=== PATIENT | female | born 1985 | race African-American/Black ===

== ENCOUNTER 2018-09-01 19:43 | Emergency (ER) | payer SELFPAY ==
[2018-09-01 20:59] LABS: Urine Blood TRACE (NEG); Urine Glucose NEGATIVE (NEG); Urine Protein NEGATIVE (NEG); Urine Specific Gravity 1.025 (1.005-1.030)
[2018-09-01 21:12] LABS: Urine Bacteria 20-50 /HPF (<20); Urine Culture Reflex Order NOT NEEDED; Urine RBC <5 /HPF (NONE SEEN)
--- NOTE | 2018-09-01 21:22 | ER ---
Nurse's Notes [facility] Name: Pricila Hanson Age: 33 yrs Sex: Female : 1985 Arrival Date: 09/01/2018 Time: 19:47 Bed 4 Private MD: Diagnosis: Pain in right foot;Urinary tract infection, site not specified Presentation: 09/01 20:09 Presenting complaint: Patient states: Burning after urination for 3 days and right foot aj pain with swelling 3 days ago, improved. Transition of care: patient was not received from another setting of care. Onset of symptoms was August 29, 2018. Risk Assessment: Do you want to hurt yourself or someone else? Patient reports no desire to harm self or others. Initial Sepsis Screen: Does the patient meet any 2 criteria? No. Patient's initial sepsis screen is negative. Does the patient have a suspected source of infection? No. Patient's initial sepsis screen is negative. Care prior to arrival: None. 20:09 Method Of Arrival: Ambulatory aj 20:09 Acuity: CECIL 3 aj Triage Assessment: 20:11 General: Appears in no apparent distress. comfortable, Behavior is calm, cooperative, aj appropriate for age. Pain: Denies pain. Neuro: Level of Consciousness is awake, alert, obeys commands, Oriented to person, place, time, situation, Appropriate for age. Respiratory: Airway is patent Respiratory effort is even, unlabored, Respiratory pattern is regular, symmetrical. Derm: Skin is intact, is healthy with good turgor, Skin is pink, warm \T\ dry. normal. 20:59 EENT: No signs and/or symptoms were reported regarding the EENT system. Cardiovascular: ak1 No deficits noted. GI: No signs and/or symptoms were reported involving the gastrointestinal system. : No signs and/or symptoms were reported regarding the genitourinary system. Musculoskeletal: Reports pain to foot. 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 - Social history:: Smoking status: Patient/guardian denies using tobacco. - Ebola Screening: : Patient negative for fever greater than or equal to 101.5 degrees Fahrenheit, and additional compatible Ebola Virus Disease symptoms Patient denies exposure to infectious person Patient denies travel to an Ebola-affected area in the 21 days before illness onset No symptoms or risks identified at this time. Screenin:36 Abuse screen: Denies threats or abuse. Denies injuries from another. Nutritional ak1 screening: No deficits noted. Tuberculosis screening: No symptoms or risk factors identified. Fall Risk None identified. Assessment: 20:59 Reassessment: Patient appears in no apparent distress at this time. No changes from ak1 previously documented assessment. see triage assessment. Vital Signs: 20:11 BP 128 / 72; Pulse 86; Resp 19; Temp 97.6; Pulse Ox 99% on R/A; Weight 122.47 kg; aj Height 5 ft. 8 in. (172.72 cm); 21:29 BP 126 / 80; Pulse 92; Resp 19; Pulse Ox 100% on R/A; ak1 20:11 Body Mass Index 41.05 (122.47 kg, 172.72 cm) aj ED Course: 19:47 Patient arrived in ED. ag3 20:10 Triage completed. aj 20:11 Arm band placed on right wrist. Patient placed in an exam room. aj 20:36 Nanette Lim, RN is Primary Nurse. ak1 20:36 Patient has correct armband on for positive identification. Bed in low position. Call ak1 light in reach. Side rails up X 1. Pulse ox on. NIBP on. 20:40 Eagle Pantoja PA is PHCP. cp 20:40 Gerardo Avila MD is Attending Physician. cp 21:14 X-ray completed. Portable x-ray completed in exam room. Patient tolerated procedure az well. 21:15 XRAY Foot RIGHT 3 View In Process Unspecified. EDMS 21:28 No provider procedures requiring assistance completed. Patient did not have IV access ak1 during this emergency room visit. Administered Medications: No medications were administered Outcome: 21:21 Discharge ordered by . cp 21:28 Discharged to home ambulatory. ak1 21:28 Condition: good 21:28 Discharge instructions given to patient, Instructed on discharge instructions, follow up and referral plans. no drinking with medication, no driving heavy equipment, medication usage, safety practices, control, Demonstrated understanding of instructions, follow-up care, medications, Prescriptions given X 3. 21:32 Patient left the ED. ak1 Addendum: 09/04/2018 10:25 Addendum: Culture Results: Positive urine culture. Phone call Attempt #1 hang up. h b 13:32 Addendum: Culture Results: Positive urine culture. Phone call Attempt #2 no answer. h b 09/05/2018 12:44 Addendum: Culture Results: Positive urine culture. Phone call Attempt #3 no answer. h b Signatures: Dispatcher [employer] EDAshley Cotton RN RN Nanette Rock RN RN ak1 Eagle Pantoja PA PA cp Baxter, Heather, RN RN Niurka Vargas Alice ag3
--- NOTE | 2018-09-01 21:22 | EDPHYS ---
Physician Documentation [facility] Name: Pricila Hanson Age: 33 yrs Sex: Female : 1985 Arrival Date: 09/01/2018 Time: 19:47 Bed 4 Private MD: ED Physician Gerardo Avila HPI: 09/01 20:50 This 33 yrs old Black Female presents to ER via Ambulatory with complaints of Urinary cp Problem. 20:50 The patient presents with urinary symptoms, dysuria. cp 20:50 Onset: The symptoms/episode began/occurred 3 day(s) ago. Associated signs and symptoms: cp Pertinent negatives: fever, vaginal bleeding, vaginal discharge, back pain. The patient presents with pain, that is acute, swelling, tenderness. The complaints affect the right foot. Context: resulted from an unknown cause, the patient can fully bear weight, the patient is able to ambulate, with mild difficulty. 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 - Social history:: Smoking status: Patient/guardian denies using tobacco. - Ebola Screening: : Patient negative for fever greater than or equal to 101.5 degrees Fahrenheit, and additional compatible Ebola Virus Disease symptoms Patient denies exposure to infectious person Patient denies travel to an Ebola-affected area in the 21 days before illness onset No symptoms or risks identified at this time. ROS: 21:00 Constitutional: Negative for body aches, chills, fever, poor PO intake. cp 21:00 Eyes: Negative for injury, pain, redness, and discharge. cp 21:00 ENT: Negative for drainage from ear(s), ear pain, sore throat, difficulty swallowing, difficulty handling secretions. 21:00 Cardiovascular: Negative for chest pain, edema, palpitations. 21:00 Respiratory: Negative for cough, shortness of breath, wheezing. 21:00 Abdomen/GI: Negative for abdominal pain, nausea, vomiting, and diarrhea. 21:00 Back: Negative for pain at rest, pain with movement. 21:00 : Positive for burning with urination, Negative for vaginal bleeding, vaginal discharge. 21:00 MS/extremity: Positive for pain, swelling, tenderness, of the right foot. 21:00 All other systems are negative. Exam: 21:05 Constitutional: The patient appears in no acute distress, alert, awake, non-toxic, well cp developed, well nourished. 21:05 Head/Face: Normocephalic, atraumatic. cp 21:05 Eyes: Periorbital structures: appear normal, Conjunctiva: normal, no exudate, no injection, Sclera: no appreciated abnormality, Lids and lashes: appear normal, bilaterally. 21:05 ENT: External ear(s): are unremarkable, Nose: is normal, Mouth: Lips: moist, Oral mucosa: moist, Posterior pharynx: is normal, airway is patent. 21:05 Chest/axilla: Inspection: normal. 21:05 Cardiovascular: Rate: normal. 21:05 Respiratory: the patient does not display signs of respiratory distress, Respirations: normal, no use of accessory muscles, no retractions, no splinting, no tachypnea. 21:05 Abdomen/GI: Exam negative for discomfort, distension, guarding, Inspection: abdomen appears normal. 21:05 Back: pain, is absent, ROM is normal. 21:05 Musculoskeletal/extremity: Extremities: grossly normal except: noted in the lateral aspect right foot: pain, tenderness, There is no evidence of deformity. 21:05 Skin: cellulitis, is not appreciated, no rash present. Vital Signs: 20:11 BP 128 / 72; Pulse 86; Resp 19; Temp 97.6; Pulse Ox 99% on R/A; Weight 122.47 kg; aj Height 5 ft. 8 in. (172.72 cm); 21:29 BP 126 / 80; Pulse 92; Resp 19; Pulse Ox 100% on R/A; ak1 20:11 Body Mass Index 41.05 (122.47 kg, 172.72 cm) aj MDM: 20:40 Patient medically screened. cp 21:00 Differential diagnosis: fracture, pyelonephritis urinary tract infection, vaginosis. cp 21:20 Data reviewed: vital signs, nurses notes, lab test result(s), radiologic studies, plain cp films. 21:20 Test interpretation: by ED physician or midlevel provider: plain radiologic studies. cp Counseling: I had a detailed discussion with the patient and/or guardian regarding: the historical points, exam findings, and any diagnostic results supporting the discharge/admit diagnosis, lab results, radiology results, to return to the emergency department if symptoms worsen or persist or if there are any questions or concerns that arise at home. 09/01 20:42 Order name: Urine Culture ak1 09/01 20:42 Order name: Urine Microscopic Only; Complete Time: 21:20 ak1 09/01 20:42 Order name: Urine Dipstick-Ancillary (obtain specimen); Complete Time: 20:43 ak1 09/01 20:45 Order name: XRAY Foot RIGHT 3 View cp 09/01 20:51 Order name: Urine Dipstick--Ancillary (enter results); Complete Time: 21:20 ms 09/01 20:51 Order name: Urine --Ancillary (enter results); Complete Time: 21:20 ms 09/01 20:42 Order name: Urine Test (obtain specimen); Complete Time: 20:42 ak1 Administered Medications: No medications were administered Disposition: 09/01/18 21:21 Discharged to Home. Impression: Pain in right foot, Urinary tract infection, site not specified. - Condition is Stable. - Discharge Instructions: Urinary Tract Infection, Adult, Foot Pain. - Prescriptions for Anaprox DS 550 mg Oral Tablet - take 1 tablet by ORAL route every 12 hours As needed; 20 tablet. Pyridium 200 mg Oral Tablet - take 1 tablet by ORAL route every 8 hours for 2 days; 6 tablet. Bactrim DS 800- 160 mg Oral Tablet - take 1 tablet by ORAL route every 12 hours for 7 days; 14 tablet. - Medication Reconciliation Form, Thank You Letter, Antibiotic Education, Prescription Opioid Use form. - Follow up: Private Physician; When: 1 week; Reason: Recheck today's complaints. - Problem is new. - Symptoms have improved. Addendum: 09/04/2018 13:40 Co-signature as Attending Physician, Gerardo Avila MD I agree with the assessment and k dr plan of care. Signatures: Dispatcher [employer] EDMS Ashley Petersen RN RN aj Rittger, Kevin, MD MD kdr Nanette Lim RN RN ak1 Eagle Pantoja PA PA cp Corrections: (The following items were deleted from the chart) 09/01 21:32 21:21 09/01/2018 21:21 Discharged to Home. Impression: Pain in right foot; Urinary ak1 tract infection, site not specified. Condition is Stable. Forms are Medication Reconciliation Form, Thank You Letter, Antibiotic Education, Prescription Opioid Use. Follow up: Private Physician; When: 1 week; Reason: Recheck today's complaints. Problem is new. Symptoms have improved. cp 09/02 15:23 15:21 Constitutional: The patient appears in no acute distress, alert, cp cp
--- NOTE | 2018-09-01 21:27 | RAD REPORT ---
EXAM DESCRIPTION: RAD - Foot Right 3 View - 09/01/2018 9:17 pm CLINICAL HISTORY: PAIN COMPARISON: No comparisons FINDINGS: No fracture or dislocation seen. Tiny calcaneal spurs are noted.
== END 2018-09-01 21:32 | disposition home or self-care (01) ==
LOC: ER 19:43
DX: N39.0 Urinary tract infection, site not specified (principal); M79.671 Pain in right foot; Z88.8 Allergy status to other drugs, medicaments and biological substances
CPT/HCPCS: 81003; 81015; 81025; 87077; 87086; 87088; 87186; 99283

== ENCOUNTER 2019-09-14 23:49 | Emergency (ER) | payer OTHER, SELFPAY ==
[2019-09-15] MEDS ORDERED: NA CHLORIDE 0.9% 1,000 ML ONE ×2 (00:53→03:12)
[2019-09-15] MEDS ORDERED: ONDANSETRON 4 MG/2 ML VIAL ONE (00:53)
[2019-09-15] MEDS ORDERED: FAMOTIDINE 20 MG/2 ML VIAL IV ONE (00:53)
[2019-09-15 01:18] LABS: Absolute Lymphocytes (CBC) 0.6 K/uL (0.7-4.9); Basophils % 0.5 % (0-1.3); Hematocrit 29.7 % (36.0-45.0); MPV 8.4 fL (7.6-11.3); RBC Red Blood Cell Count 4.12 M/uL (3.86-4.86)
[2019-09-15 01:33] LABS: Albumin 3.3 g/dL (3.4-5.0); Bilirubin Direct 0.1 mg/dL (0-0.2); Bilirubin Total 0.3 mg/dL (0.2-1.0); Potassium 3.6 mmol/L (3.5-5.1); Protein, Total 7.2 g/dL (6.4-8.2)
[2019-09-15] MEDS ORDERED: CEFTRIAXONE/SWI 1gm 1 GM/10 ML SYR ONE (02:30)
[2019-09-15] MEDS ORDERED: KETOROLAC 30 MG/ML INJ ONE (02:37)
[2019-09-15 03:01] LABS: Urine Blood NEGATIVE (NEG); Urine Glucose NEGATIVE (NEG)
[2019-09-15 03:02] LABS: Urine Protein NEGATIVE (NEG); Urine pH 5.5 (5.0-7.0)
--- NOTE | 2019-09-15 03:46 | EDPHYS ---
Physician Documentation [facility] Name: Pricila Hanson Age: 34 yrs Sex: Female : 1985 Arrival Date: 09/14/2019 Time: 23:58 Bed 15 Private MD: ED Physician Eagle Ragland HPI: 09/15 00:25 This 34 yrs old Black Female presents to ER via Ambulatory with complaints of Abdominal cp Pain. 00:25 The patient presents with abdominal pain. cp 00:25 Onset: The symptoms/episode began/occurred last night. The symptoms do not radiate. cp Associated signs and symptoms: Pertinent negatives: anorexia, blood in stools, constipation, diarrhea, dysuria, fever, shortness of breath. Severity of pain: in the emergency department the pain is unchanged despite home interventions. 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 - Social history:: Smoking status: Patient/guardian denies using tobacco. - Ebola Screening: : Patient denies exposure to infectious person Patient denies travel to an Ebola-affected area in the 21 days before illness onset. ROS: 00:30 Constitutional: Negative for body aches, chills, fever, poor PO intake. cp 00:30 Eyes: Negative for injury, pain, redness, and discharge. cp 00:30 ENT: Positive for ear pain, Negative for drainage from ear(s), sore throat, difficulty swallowing, difficulty handling secretions. 00:30 Cardiovascular: Negative for chest pain, palpitations. 00:30 Respiratory: Negative for cough, shortness of breath, wheezing. 00:30 Abdomen/GI: Positive for abdominal pain, Negative for vomiting, diarrhea, constipation, anorexia, black/tarry stool, rectal bleeding. 00:30 Back: Negative for injury or acute deformity, pain at rest, pain with movement. 00:30 : Negative for urinary symptoms. 00:30 Skin: Negative for rash. 00:30 Neuro: Negative for altered mental status, dizziness, weakness. 00:30 All other systems are negative. Exam: 00:40 Constitutional: The patient appears in no acute distress, alert, awake, non-toxic, well cp developed, well nourished. 00:40 Head/Face: Normocephalic, atraumatic. cp 00:40 Eyes: Periorbital structures: appear normal, Conjunctiva: normal, no exudate, no injection, Sclera: no appreciated abnormality, Lids and lashes: appear normal, bilaterally. 00:40 ENT: External ear(s): are unremarkable, Ear canal(s): are normal, clear, TM's: bulging, is not appreciated, bilaterally, dullness, bilaterally, erythema, is not appreciated, bilaterally, Nose: is normal, Mouth: Lips: moist, Oral mucosa: pink and intact, moist, Posterior pharynx: is normal, airway is patent, no erythema, no exudate. 00:40 Neck: ROM/movement: is normal, is supple, without pain, no range of motions limitations, no nuchal rigidity, Lymph nodes: no appreciated lymphadenopathy. 00:40 Chest/axilla: Inspection: normal, Palpation: is normal, no crepitus, no tenderness. 00:40 Cardiovascular: Rate: normal, Rhythm: regular. 00:40 Respiratory: the patient does not display signs of respiratory distress, Respirations: normal, no use of accessory muscles, no retractions, no splinting, no tachypnea, labored breathing, is not present, Breath sounds: are clear throughout, no decreased breath sounds, no stridor, no wheezing. 00:40 Abdomen/GI: Inspection: abdomen appears normal, Bowel sounds: active, all quadrants, Palpation: soft, in all quadrants, mild abdominal tenderness, in the right upper quadrant, rebound tenderness, is not appreciated, voluntary guarding, is not appreciated. 00:40 Back: CVA tenderness, is absent. Vital Signs: 00:08 BP 99 / 61; Pulse 80; Resp 18; Temp 97.5; Pulse Ox 100% ; Weight 99.79 kg; Height 5 ft. aa1 8 in. (172.72 cm); Pain 8/10; 01:00 BP 103 / 65; Pulse 76; Resp 18; Pulse Ox 100% on R/A; wh 02:00 BP 99 / 66; Pulse 75; Resp 18; Pulse Ox 99% on R/A; wh 03:00 BP 110 / 65; Pulse 75; Resp 18; Temp 98; Pulse Ox 99% on R/A; Pain 0/10; jv1 03:48 BP 109 / 67; Pulse 73; Resp 18; Temp 98; Pulse Ox 100% on R/A; Pain 0/10; jv1 04:15 BP 110 / 65; Pulse 73; Resp 18; Temp 98; Pulse Ox 100% ; Pain 0/10; jv1 00:08 Body Mass Index 33.45 (99.79 kg, 172.72 cm) aa1 MDM: 00:06 Patient medically screened. hailee 09/15 00:19 Order name: Basic Metabolic Panel; Complete Time: 01:36 cp 09/15 02:36 Interpretation: Normal except: GLUC 108; GFR 67; CA 8.1. cp 09/15 00:19 Order name: CBC with Diff; Complete Time: 01:36 cp 09/15 00:19 Order name: Creatinine for Radiology; Complete Time: 01:36 cp 09/15 00:19 Order name: Hepatic Function; Complete Time: 01:36 cp 09/15 00:19 Order name: Lipase; Complete Time: 01:36 cp 09/15 02:28 Order name: Urine Dipstick--Ancillary (enter results); Complete Time: 03:43 [facility] 09/15 00:40 Order name: CT Abd/Pelvis - IV Contrast Only cp 09/15 02:28 Order name: Urine --Ancillary (enter results); Complete Time: 03:43 [facility] 09/15 00:19 Order name: IV Saline Lock; Complete Time: 00:47 cp 09/15 00:19 Order name: Labs collected and sent; Complete Time: 00:47 cp 09/15 00:19 Order name: Urine Dipstick-Ancillary (obtain specimen); Complete Time: 02:21 cp 09/15 00:19 Order name: Urine Test (obtain specimen); Complete Time: 02:21 cp Administered Medications: 00:58 Drug: Zofran 4 mg Route: IVP; Site: right antecubital; 02:15 Follow up: Response: No adverse reaction; Nausea is decreased 01:00 Drug: Pepcid 20 mg Route: IVP; Site: right antecubital; 02:15 Follow up: Response: No adverse reaction 01:02 Drug: NS 0.9% 1000 ml Route: IV; Rate: 1 bolus; Site: right antecubital; 02:14 Follow up: Response: No adverse reaction; IV Status: Completed infusion 02:35 Drug: Rocephin 1 grams Route: IV; Rate: bolus; Site: right antecubital; 03:30 Follow up: Response: No adverse reaction; IV Status: Completed infusion jv1 03:35 Follow up: Response: No adverse reaction; IV Status: Completed infusion rr5 02:42 Drug: TORadol 30 mg Route: IVP; Site: right antecubital; wh 03:45 Follow up: Response: No adverse reaction rr5 03:15 Drug: NS 0.9% 1000 ml Route: IV; Rate: 1 bolus; Site: right antecubital; rr5 03:50 Follow up: Response: No adverse reaction; IV Status: Completed infusion jv1 03:56 Drug: Flagyl 500 mg Volume: 100 ml; Route: IVPB; Rate: 200 ml/hr; Infused Over: 30 rr5 mins; Site: right antecubital; 04:15 Follow up: Response: No adverse reaction; IV Status: Completed infusion jv1 03:57 Drug: Cipro 500 mg Route: PO; rr5 04:15 Follow up: Response: No adverse reaction jv1 Disposition: 09/15/19 03:46 Discharged to Home. Impression: Abdominal tenderness, Noninfective gastroenteritis and colitis, unspecified - right sided, Anemia, unspecified. - Condition is Stable. - Discharge Instructions: Abdominal Pain, Adult, Anemia, Nonspecific, Food Choices to Help Relieve Diarrhea, Adult, Nausea and Vomiting, Adult, Abdominal Pain, Adult, [id number]. - Prescriptions for Bentyl 20 mg Oral Tablet - take 1 tablet by ORAL route every 6 hours As needed; 20 tablet. Flagyl 500 mg Oral Tablet - take 1 tablet by ORAL route every 6 hours for 10 days; 28 tablet. Zofran 4 mg Oral Tablet - take 1 tablet by ORAL route every 12 hours As needed; 20 tablet. Cipro 500 mg Oral Tablet - take 1 tablet by ORAL route every 12 hours for 7 days; 14 tablet. - Medication Reconciliation Form, Thank You Letter, Antibiotic Education, Prescription Opioid Use form. - Follow up: Private Physician; When: 2 - 3 days; Reason: Recheck today's complaints, Continuance of care, Re-evaluation by your physician. Follow up: Nubia Lane MD; When: 2 - 3 days; Reason: Recheck today's complaints, Re-evaluation by your physician. - Problem is new. - Symptoms have improved. Addendum: 09/17/2019 08:38 Co-signature as Attending Physician, Eagle Ragland MD I agree with the assessment and c sr plan of care. Signatures: Dispatcher [employer] EDShelly Xiong RN RN aa1 Eagle Ragland MD MD cha Page, Corey, PA PA cp Tarik Osuna Raymond RN RN rr5 Susan Grover RN jv1 Corrections: (The following items were deleted from the chart) 09/15 02:36 01:37 Normal except: GLUC 108; GFR 67. cp cp 02:52 00:25 The patient presents with abdominal pain in the right upper quadrant, cp cp 04:49 03:46 09/15/2019 03:46 Discharged to Home. Impression: Abdominal tenderness; rr5 Noninfective gastroenteritis and colitis, unspecified - right sided; Anemia, unspecified. Condition is Stable. Forms are Medication Reconciliation Form, Thank You Letter, Antibiotic Education, Prescription Opioid Use. Follow up: Private Physician; When: 2 - 3 days; Reason: Recheck today's complaints, Continuance of care, Re-evaluation by your physician. Follow up: Nubia Lane; When: 2 - 3 days; Reason: Recheck today's complaints, Re-evaluation by your physician. Problem is new. Symptoms have improved. hailee
--- NOTE | 2019-09-15 03:46 | ER ---
Nurse's Notes [facility] Name: Pricila Hanson Age: 34 yrs Sex: Female : 1985 Arrival Date: 09/14/2019 Time: 23:58 Bed 15 Private MD: Diagnosis: Abdominal tenderness;Noninfective gastroenteritis and colitis, unspecified-right sided;Anemia, unspecified Presentation: 09/15 00:05 Presenting complaint: Patient states: lower abd pain since last night with N/D. Denies aa1 vomiting. Transition of care: patient was not received from another setting of care. Onset of symptoms was September 13, 2019. Risk Assessment: Do you want to hurt yourself or someone else? Patient reports no desire to harm self or others. Initial Sepsis Screen: Does the patient meet any 2 criteria? No. Patient's initial sepsis screen is negative. Does the patient have a suspected source of infection? Yes: Acute abdominal pain. Care prior to arrival: None. 00:05 Method Of Arrival: Ambulatory aa1 00:05 Acuity: CECIL 3 aa1 Triage Assessment: 00:08 General: Appears in no apparent distress. comfortable, Behavior is calm, cooperative, aa1 appropriate for age. 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 - Social history:: Smoking status: Patient/guardian denies using tobacco. - Ebola Screening: : Patient denies exposure to infectious person Patient denies travel to an Ebola-affected area in the 21 days before illness onset. Screenin:30 Abuse screen: Denies threats or abuse. Denies injuries from another. Nutritional wh screening: No deficits noted. Tuberculosis screening: No symptoms or risk factors identified. Fall Risk None identified. Assessment: 00:15 General: Appears in no apparent distress. Behavior is calm, cooperative, appropriate wh for age. Pain: Complains of pain in right upper quadrant Pain does not radiate. Pain currently is 5 out of 10 on a pain scale. Quality of pain is described as sharp, Pain began 1 day ago. Neuro: Level of Consciousness is awake, alert, obeys commands, Oriented to person, place, time, situation, Appropriate for age. Cardiovascular: Heart tones S1 S2. Respiratory: Airway is patent Respiratory effort is even, unlabored, Respiratory pattern is regular, symmetrical, Breath sounds are clear bilaterally. GI: Abdomen is flat, non-distended, Bowel sounds present X 4 quads. Abd is soft and non tender X 4 quads. GI: Reports diarrhea, nausea. : No signs and/or symptoms were reported regarding the genitourinary system. EENT: No signs and/or symptoms were reported regarding the EENT system. Derm: Skin is intact, is healthy with good turgor, Skin is pink, warm \T\ dry. normal. Musculoskeletal: Circulation, motion, and sensation intact. 01:05 Reassessment: Patient appears in no apparent distress at this time. No changes from previously documented assessment. Patient and/or family updated on plan of care and expected duration. Pain level reassessed. Patient is alert, oriented x 3, equal unlabored respirations, skin warm/dry/pink. 02:09 Reassessment: Patient appears in no apparent distress at this time. No changes from previously documented assessment. Patient and/or family updated on plan of care and expected duration. Pain level reassessed. Patient is alert, oriented x 3, equal unlabored respirations, skin warm/dry/pink. 03:00 Reassessment: Patient appears in no apparent distress at this time. No changes from jv1 previously documented assessment. Patient and/or family updated on plan of care and expected duration. Pain level reassessed. Patient is alert, oriented x 3, equal unlabored respirations, skin warm/dry/pink. received report for transfer of pt care from Tarik Osuna RN. General: Appears in no apparent distress. Behavior is calm, cooperative, appropriate for age. Pain: Denies pain. Neuro: Neuro: Level of Consciousness is Oriented to person, place, time, situation, Appropriate for age. Cardiovascular: Heart tones S1 S2. Respiratory: Airway is patent Breath sounds are clear bilaterally. GI: Abdomen is round non-distended. : No signs and/or symptoms were reported regarding the genitourinary system. EENT: No signs and/or symptoms were reported regarding the EENT system. Derm: Musculoskeletal: Circulation, motion, and sensation intact. 03:00 Reassessment: pt just came back from CT scan. jv1 03:47 Reassessment: Patient appears in no apparent distress at this time. No changes from jv1 previously documented assessment. Patient and/or family updated on plan of care and expected duration. Pain level reassessed. Patient is alert, oriented x 3, equal unlabored respirations, skin warm/dry/pink. Patient denies pain at this time. 04:15 Reassessment: Patient appears in no apparent distress at this time. No changes from jv1 previously documented assessment. Patient and/or family updated on plan of care and expected duration. Pain level reassessed. Patient is alert, oriented x 3, equal unlabored respirations, skin warm/dry/pink. Patient denies pain at this time. Vital Signs: 00:08 BP 99 / 61; Pulse 80; Resp 18; Temp 97.5; Pulse Ox 100% ; Weight 99.79 kg; Height 5 ft. aa1 8 in. (172.72 cm); Pain 8/10; 01:00 BP 103 / 65; Pulse 76; Resp 18; Pulse Ox 100% on R/A; wh 02:00 BP 99 / 66; Pulse 75; Resp 18; Pulse Ox 99% on R/A; wh 03:00 BP 110 / 65; Pulse 75; Resp 18; Temp 98; Pulse Ox 99% on R/A; Pain 0/10; jv1 03:48 BP 109 / 67; Pulse 73; Resp 18; Temp 98; Pulse Ox 100% on R/A; Pain 0/10; jv1 04:15 BP 110 / 65; Pulse 73; Resp 18; Temp 98; Pulse Ox 100% ; Pain 0/10; jv1 00:08 Body Mass Index 33.45 (99.79 kg, 172.72 cm) aa1 ED Course: 09/14 23:58 Patient arrived in ED. mr 09/15 00:06 Eagle Pantoja PA is PHCP. cp 00:06 Eagle Ragland MD is Attending Physician. cp 00:07 Triage completed. aa1 00:08 Arm band placed on right wrist. aa1 00:27 Tarik Osuna is Primary Nurse. wh 00:30 Patient has correct armband on for positive identification. Placed in gown. Bed in low wh position. Call light in reach. Side rails up X 1. Pulse ox on. NIBP on. 00:30 Inserted saline lock: 22 gauge in right antecubital area, using aseptic technique. Blood collected. 01:10 Radiology exam delayed due to lab results not completed at this time. (BUN/Creatinine) kw1 test not completed at this time. 01:47 Radiology exam delayed due to test not completed at this time. kw1 03:21 CT Abd/Pelvis - IV Contrast Only In Process Unspecified. EDMS 03:[address] MD is Referral Physician. [facility] 04:20 No provider procedures requiring assistance completed. IV discontinued, intact, jv1 bleeding controlled, No redness/swelling at site. Pressure dressing applied. Administered Medications: 00:58 Drug: Zofran 4 mg Route: IVP; Site: right antecubital; 02:15 Follow up: Response: No adverse reaction; Nausea is decreased 01:00 Drug: Pepcid 20 mg Route: IVP; Site: right antecubital; 02:15 Follow up: Response: No adverse reaction 01:02 Drug: NS 0.9% 1000 ml Route: IV; Rate: 1 bolus; Site: right antecubital; 02:14 Follow up: Response: No adverse reaction; IV Status: Completed infusion 02:35 Drug: Rocephin 1 grams Route: IV; Rate: bolus; Site: right antecubital; 03:30 Follow up: Response: No adverse reaction; IV Status: Completed infusion jv1 03:35 Follow up: Response: No adverse reaction; IV Status: Completed infusion rr5 02:42 Drug: TORadol 30 mg Route: IVP; Site: right antecubital; 03:45 Follow up: Response: No adverse reaction rr5 03:15 Drug: NS 0.9% 1000 ml Route: IV; Rate: 1 bolus; Site: right antecubital; rr5 03:50 Follow up: Response: No adverse reaction; IV Status: Completed infusion jv1 03:56 Drug: Flagyl 500 mg Volume: 100 ml; Route: IVPB; Rate: 200 ml/hr; Infused Over: 30 rr5 mins; Site: right antecubital; 04:15 Follow up: Response: No adverse reaction; IV Status: Completed infusion jv1 03:57 Drug: Cipro 500 mg Route: PO; rr5 04:15 Follow up: Response: No adverse reaction jv1 Outcome: 03:46 Discharge ordered by MD. stephen 04:20 Discharged to home ambulatory. jv1 04:20 Condition: improved 04:20 Discharge instructions given to Instructed on discharge instructions, follow up and referral plans. Demonstrated understanding of instructions, follow-up care, medications, Prescriptions given X 1, 4. 04:49 Patient left the ED. rr5 Signatures: Dispatcher [employer] EDMS Shelly Burton, RN RN aa1 Eagle Ragland MD MD cha Rivera, Eagle Mcgill, PA PA Tarik Mckeon Cynthia Leonard kw1 Susan Grover RN RN jv1 Moose Rogers RN RN rr5 Corrections: (The following items were deleted from the chart) 04:50 03:35 Response: No adverse reaction; IV Status: Completed infusion rr5 rr5
[2019-09-15] MEDS ORDERED: METRONIDAZOLE 500mg IVPB 500 MG/100 ML BAG IV ONE (03:50)
[2019-09-15] MEDS ORDERED: CIPROFLOXACIN HCL 500 MG TAB ONE (03:50)
[2019-09-15 05:20] VITALS: TEMP 98
[2019-09-15 05:22] VITALS: O2SAT 100
[2019-09-15 05:23] VITALS: BP 110/65
--- NOTE | 2019-09-15 09:35 | RAD REPORT ---
EXAM DESCRIPTION: CT - Abdomen Pelvis W Contrast - 09/15/2019 3:20 am CLINICAL HISTORY: ABD PAIN COMPARISON: None. TECHNIQUE: Biphasic, helical CT imaging of the abdomen and pelvis was performed following 100 ml non -ionic IV contrast. Oral contrast was given. All CT scans are performed using dose optimization technique as appropriate and may include automated exposure control or mA/KV adjustment according to patient size. FINDINGS: No suspicious findings in the lung bases. The liver, spleen, and pancreas show no suspicious findings. Gallbladder and biliary tree are also wi thout suspicious finding. Symmetric renal function is seen with no hydronephrosis or suspicious renal mass. No pyelonephritis o r acute parenchymal process. No bladder abnormalities. No adrenal abnormalities. No gastric dilatation or gastric wall thickening. Small bowel with the exception of the terminal ileu m is unremarkable. There is circumferential wall thickening and edema involving the right-side colon from cecum to hepatic flexure. Stranding is seen in the adjacent fat. There is minimal involvement of the terminal ileum. Appendix does not appear to be involved. No focal mass. Malignancy is not suspec devendra given the long length of involved colon and the patient age. No free air or pneumatosis. Small me senteric lymph nodes are present. Infectious/inflammatory colitis are suspected. History of ulcerativ e colitis or inflammatory bowel disease is not known. Uterus and left ovary are unremarkable. Right ovary appears to be enlarged and may contain a dominant cyst. Body motion artifact in the mid and lower pelvis limits assessment. A follow-up nonemergent pe lvic ultrasound could be performed. A primary ovarian process is not suspected. No fallopian tube dil atation seen. No hernia, mass or bulky lymphadenopathy. No suspicious bony findings. Due to technical failure date report could not be generated at the time of the study. Findings were t elephoned to doctor Ragland. IMPRESSION: Infectious/ inflammatory colitis pattern involving right-side colon from cecum to hepati c flexure. Terminal ileum is minimally involved. No abscess, free air or surgically emergent finding. Enlarged right ovary is seen. This is probably a dominant cyst. Pelvic assessment is limited due to s ignificant body motion artifact. Ovarian process as a source for patient pain is not likely and follo w-up nonemergent pelvic ultrasound would be recommended.
== END 2019-09-15 04:49 | disposition home or self-care (01) ==
LOC: ER 23:49
DX: K52.9 Noninfective gastroenteritis and colitis, unspecified (principal); D64.9 Anemia, unspecified; R10.819 Abdominal tenderness, unspecified site; Z88.8 Allergy status to other drugs, medicaments and biological substances
CPT/HCPCS: 96365; 96367; 96361; 85025; 80048; 36415; 81025; 80076; 81003; 83690; 74177; 96375; 99284; Q9967; J0696; J7030 ×2; J2405

== ENCOUNTER 2023-09-21 15:14 | Emergency (ER) | payer OTHER ==
--- OUTSIDE RECORDS SUMMARY | 2023-09-21 15:18 | XMS REPORT | Continuity of Care Document ---
:[address] [facility] t Address [address] [place] [address] [place] [id number] Care Team Providers Name Role Phone ARINA GOINS Primary Care Physician Unavailable Linda Amanda Attending Clinician Unavailable ZACK PRICE Attending Clinician Unavailable SANDRINE GREENBERG Attending Clinician Unavailable BALBINA GRIFFITH Attending Clinician Unavailable SHRUTIH ARRIAZA Attending Clinician Unavailable GURPREET MAY Attending Clinician Unavailable KENDRICK DAVILA Attending Clinician Unavailable LAB90 Attending Clinician Unavailable LAB47 Attending Clinician Unavailable MIRLANDE GRACE Attending Clinician Unavailable LAB59 Attending Clinician Unavailable EMELY PATEL Attending Clinician Unavailable ROQUE MORALES Attending Clinician Unavailable VIKY NIÑO Attending Clinician Unavailable VIKY NIÑO Attending Clinician Unavailable Payers Payer Name Policy Type Policy Number Effective Date Expiration Date Bart patricia [facility] 9 [id number] 2022 SILVER: O [employer] 94 00:00:00 [facility] [id number] HEALTHCARE Problems Condition Condition Condition Status Onset Resolution Last Treating Co mments Source Name Details Category Date Date Treatment Clinician Date Class 2 Class 2 Disease Active Millicent obesity obesity 6-05 Seybold due to due to 00:00: - excess excess 00 Externa calories calories l without without serious serious comorbidit comorbidit y with y with body mass body mass index index (BMI) of (BMI) of 38.0 to 38.0 to 38.9 in 38.9 in adult adult Class 2 Class 2 Disease Active Millicent obesity obesity 6-05 Seybold due to due to 00:00: - excess excess 00 Externa calories calories l without without serious serious comorbidit comorbidit y with y with body mass body mass index index (BMI) of (BMI) of 38.0 to 38.0 to 38.9 in 38.9 in adult adult Right-side Right-side Problem Active C ommon d low back d low back Sp zhao pain pain - [facility] without without St sciatica, sciatica, [facility] unspecifie unspecifie Me dical d d Center chronicity chronicity Constipati Constipati Problem Active C ommon on, on, Spirit unspecifie unspecifie - [facility] d d St constipati constipati [facility] on type on type Medical Center Rectal Rectal Problem Active Common pain pain Spirit - [facility] Elevated Elevated Problem Active Commo n blood blood Spirit pressure pressure - [facility] reading reading St without without [facility] diagnosis diagnosis Medi gael of of Center hypertensi hypertensi on on External External Problem Active Commo n hemorrhoid hemorrhoid Sp zhao - [facility] Morbid Morbid Problem Active Common (severe) (severe) Spirit obesity obesity - [facility] due to due to St excess excess [facility] calories calories [facility] Body mass Body mass Problem Active Com mon index index Spirit (BMI) of (BMI) of - [facility] 40.0-44.9 40.0-44.9 St in adult in adult [facility] Depression Depression Problem Active C ommon screening screening Spir it - [facility] Pelvic Pelvic Problem Active Common pressure pressure Spirit in female in female - CH I [facility] Screening Screening Diagnosis Active C ommon for STD for STD Spirit (sexually (sexually - CH I transmitte transmitte St d disease) d disease) [facility] Allergies, Adverse Reactions, Alerts Allergy Allergy Status Severity Reaction(s) Onset Inactive Treating Comm ents Source Name Type Date Date Clinician Seb Kong Active Rash Millicent mak ty to 04-25 Ramin adverse 00:00: - reaction 00 Externa s l NO KNOWN Drug Active [facility]ERGIE [facility] Social History Social Habit Start Date Stop Date Quantity Comments Source Gender identity 2023-02-07 Identifies as Millicent Faustin 10:33:17 female gender - External (finding) Sexual orientation 2023-02-07 Heterosexual Casandrabart Faustin 10:33:17 (finding) - External History of tobacco Current smoker Alirio Faustin use - External History SDOH Millicentrafy Fernándezo donna Alcohol Frequency - Exter nal History SDOH Millicentrafy Fernándezo ld Alcohol Std Drinks - Exte rnal History SDOH Millicent Fernándezo ld Alcohol Binge - External Alcohol intake 2023-09-13 2023-09-13 Current drinker of Alirio Faustin 00:00:00 00:00:00 alcohol (finding) - Exter nal History of Social 2023-08-10 2023-08-10 Millicent Faustin function 00:00:00 00:00:00 - External Tobacco use and 2023-02-08 2023-02-08 Smokeless tobacco Alirio Faustin exposure 00:00:00 00:00:00 non-user - External Alcohol Comment 2022-12-17 2022-12-17 Occ. Millicent juarez 00:00:00 00:00:00 - External Sex [birth year] F Millicent juarez 00:00:00 00:00:00 - External Smoking Status Start Date Stop Date Source Ex-smoker 2023-02-08 00:00:00 2023-02-08 00:00:00 Millicent benavidez - External Never smoked tobacco Millicentrafy Fernández omero - External Medications Ordered Filled Start Stop Current Ordering Indication Dosage Frequency Signature Comments Components Source Medication Medication Date Date Medication? Clinician (SIG) Name Name Phentermine 2022-11 Yes [id number] 37.5mg Take 1 Millicent HCl 37.5 MG 0-24 tablet Seybol d oral Tablet 00:00: (37.5 mg - 00 total) by Externa mouth l every morning (before breakfast) . Benzocaine- Yes [id number] 1{lozen Place 1 Millicent Menthol 9-20 ge} lozenge in Seybol d (Sore 00:00: the mouth - Throat 00 or throat Externa Lozenges) 2 times l 6-10 MG daily. mouth/throa t Lozenge Benzocaine- Yes [id number] 1{lozen Place 1 Millicent Menthol 9-20 ge} lozenge in Seybol d (Sore 00:00: the mouth - Throat 00 or throat Externa Lozenges) 2 times l 6-10 MG daily. mouth/throa t Lozenge Benzocaine- 2022-0 Yes [id number] 1{lozen Place 1 Millicent Menthol 9-20 ge} lozenge in Seybol d (Sore 00:00: the mouth - Throat 00 or throat Externa Lozenges) 2 times l 6-10 MG daily. mouth/throa t Lozenge Benzocaine- 2022-0 2023- No [id number] 1{lozen Place 1 Millicent Menthol 9-20 10-24 ge} lozenge in Seybo ld (Sore 00:00: 00:00 the mouth - Throat 00 :00 or throat Externa Lozenges) 2 times l 6-10 MG daily. mouth/throa t Lozenge Phentermine 2022-0 Yes [id number] 37.5mg Take 1 Millicent HCl 37.5 MG 8-02 tablet Seybol d oral Tablet 00:00: (37.5 mg - 00 total) by Externa mouth l every morning (before breakfast) Phentermine 2022-0 Yes [id number] 37.5mg Take 1 Millicent HCl 37.5 MG 8-02 tablet Seybol d oral Tablet 00:00: (37.5 mg - 00 total) by Externa mouth l every morning (before breakfast) Phentermine 2022-0 Yes [id number] 37.5mg Take 1 Millicent HCl 37.5 MG 8-02 tablet Seybol d oral Tablet 00:00: (37.5 mg - 00 total) by Externa mouth l every morning (before breakfast) Phentermine 2022-0 2023- No [id number] 37.5mg Take 1 Millicent HCl 37.5 MG 8-02 10-24 tablet Seybo ld oral Tablet 00:00: 00:00 (37.5 mg - 00 :00 total) by Externa mouth l every morning (before breakfast) Phentermine 3-0 Yes [id number] 37.5mg Take 1 Millicent HCl 37.5 MG 6-30 tablet Seybol d oral Tablet 00:00: (37.5 mg - 00 total) by Externa mouth l every morning (before breakfast) Phentermine 2023-0 Yes [id number] 37.5mg Take 1 Millicent HCl 37.5 MG 6-30 tablet Seybol d oral Tablet 00:00: (37.5 mg - 00 total) by Externa mouth l every morning (before breakfast) Azelaic Yes [id number] Apply qam K elsey Acid 15 % 6-19 to face Seybold apply 00:00: and chest - externally 00 for acne Exter na Gel l Tretinoin Yes [id number] Apply Isaac sey 0.05 % 6-19 pea-sized Seybold apply 00:00: amount to - externally 00 face and, Exte rna Cream chest qHS l for acne. Not for cosmetic purposes. Azelaic Yes [id number] Apply qam K elsey Acid 15 % 6-19 to face Seybold apply 00:00: and chest - externally 00 for acne Exter na Gel l Tretinoin Yes [id number] Apply Isaac sey 0.05 % 19 pea-sized Seybold apply 00:00: amount to - externally 00 face and, Exte rna Cream chest qHS l for acne. Not for cosmetic purposes. Azelaic Yes [id number] Apply qam K elsey Acid 15 % -19 to face Seybold apply 00:00: and chest - externally 00 for acne Exter na Gel l Tretinoin Yes [id number] Apply Isaac sey 0.05 % -19 pea-sized Seybold apply 00:00: amount to - externally 00 face and, Exte rna Cream chest qHS l for acne. Not for cosmetic purposes. Azelaic 2022- No [id number] Apply qam Millicent Acid 15 % 05-09 to face Seybol d apply 00:00: 00:00 and chest - externally 00 :00 for acne Exter na Gel l Tretinoin 2022- No [id number] Apply Ke lsey 0.05 % 05-0920 pea-sized Seybold apply 00:00: 00:00 amount to - externally 00 :00 face and, Exte rna Cream chest qHS l for acne. Not for cosmetic purposes. Azelaic 2022- No [id number] Apply qam Millicent Acid 15 % 05-09 to face Seybol d apply 00:00: 00:00 and chest - externally 00 :00 for acne Exter na Gel l Tretinoin 2022- No [id number] Apply Ke lsey 0.05 % 05-09 pea-sized Seybold apply 00:00: 00:00 amount to - externally 00 :00 face and, Exte rna Cream chest qHS l for acne. Not for cosmetic purposes. Phentermine Yes [id number] 37.5mg Take 1 Millicent HCl 37.5 MG 6-05 tablet Seybol d oral Tablet 00:00: (37.5 mg - 00 total) by Externa mouth l every morning (before breakfast) Phentermine Yes [id number] 37.5mg Take 1 Millicent HCl 37.5 MG 6-05 tablet Seybol d oral Tablet 00:00: (37.5 mg - 00 total) by Externa mouth l every morning (before breakfast) Phentermine 2022- No [id number] 37.5mg Take 1 Millicent HCl 37.5 MG 6-05 06-30 tablet Seybo ld oral Tablet 00:00: 00:00 (37.5 mg - 00 :00 total) by Externa mouth l every morning (before breakfast) Hydroquinon Yes [id number] Apply Millicent e 4 % apply 4-19 sparingly Sey bold externally 00:00: daily to - Cream 00 brown Externa spots, l increase to BID as tolerated. Not for use for more than 3 months. Hydroquinon 2022- No [id number] Apply Millicent e 4 % apply 4-19 06-19 sparingly Se ybold externally 00:00: 00:00 daily to - Cream 00 :00 brown Externa spots, l increase to BID as tolerated. Not for use for more than 3 months. Azelastine- Yes [id number] 1{spray Use 1 Millicent Fluticasone 3-30 } spray in Seyb old 137-50 00:00: each - MCG/ACT 00 nostril 2 Externa nasal times l Suspension daily Azelastine- Yes [id number] 1{spray Use 1 Millicent Fluticasone 3-30 } spray in [place] [address] 00:00: each - MCG/ACT 00 nostril 2 Externa nasal times l Suspension daily Fexofenadin Yes [id number] 180mg Take 1 Millicent e (SONIA) 3-30 tablet Seybol d 180 MG oral 00:00: (180 mg - Tablet 00 total) by Externa mouth l daily Azelastine- Yes [id number] 1{spray Use 1 Millicent Fluticasone 3-30 } spray in [place] [address] 00:00: each - MCG/ACT 00 nostril 2 Externa nasal times l Suspension daily Azelastine- Yes [id number] 1{spray Use 1 Millicent Fluticasone 3-30 } spray in [place] [address] 00:00: each - MCG/ACT 00 nostril 2 Externa nasal times l Suspension daily Azelastine- Yes [id number] 1{spray Use 1 Millicent Fluticasone 3-30 } spray in [place] [address] 00:00: each - MCG/ACT 00 nostril 2 Externa nasal times l Suspension daily Azelastine- 0 2022- No [id number] 1{spray Use 1 Millicent Fluticasone 3-30 09-20 } spray in [place] [address] 00:00: 00:00 each - MCG/ACT 00 :00 nostril 2 Externa nasal times l Suspension daily Azelastine- 0 2022- No [id number] 1{spray Use 1 Millicent Fluticasone 3-30 09-20 } spray in [place] [address] 00:00: 00:00 each - MCG/ACT 00 :00 nostril 2 Externa nasal times l Suspension daily Fexofenadin 0 2022- No [id number] 180mg Take 1 Millicent e (SONIA) 3-30 06-05 tablet Seybo ld 180 MG oral 00:00: 00:00 (180 mg - Tablet 00 :00 total) by Externa mouth l daily Azelaic Yes [id number] Apply qam K elsey Acid 15 % 3-21 to face Seybold apply 00:00: and chest - externally 00 for acne Exter na Gel l Tretinoin Yes [id number] Apply Isaac sey 0.05 % 3-21 pea-sized Seybold apply 00:00: amount to - externally 00 face and, Exte rna Cream chest qHS l for acne. Not for cosmetic purposes. Hydroquinon Yes [id number] Apply Millicent e 4 % apply 3-21 sparingly Sey bold externally 00:00: daily to - Cream 00 brown Externa spots, l increase to BID as tolerated. Not for use for more than 3 months. Azelaic Yes [id number] Apply qam K elsey Acid 15 % 3-21 to face Seybold apply 00:00: and chest - externally 00 for acne Exter na Gel l Tretinoin Yes [id number] Apply Isaac sey 0.05 % 3-21 pea-sized Seybold apply 00:00: amount to - externally 00 face and, Exte rna Cream chest qHS l for acne. Not for cosmetic purposes. Hydroquinon Yes [id number] Apply Millicent e 4 % apply 3-21 sparingly Sey bold externally 00:00: daily to - Cream 00 brown Externa spots, l increase to BID as tolerated. Not for use for more than 3 months. Azelaic Yes [id number] Apply qam K elsey Acid 15 % 3-21 to face Seybold apply 00:00: and chest - externally 00 for acne Exter na Gel l Tretinoin Yes [id number] Apply Isaac sey 0.05 % 3-21 pea-sized Seybold apply 00:00: amount to - externally 00 face and, Exte rna Cream chest qHS l for acne. Not for cosmetic purposes. Azelaic 2022- No [id number] Apply qam Millicent Acid 15 % -05-09 to face Seybol d apply 00:00: 00:00 and chest - externally 00 :00 for acne Exter na Gel l Tretinoin 2022- No [id number] Apply Ke lsey 0.05 % -11 05-19 pea-sized Seybold apply 00:00: 00:00 amount to - externally 00 :00 face and, Exte rna Cream chest qHS l for acne. Not for cosmetic purposes. No known No No known Kelse y medications - medication Se ybomero 13:48: s - 02 Externa l BELVIQ BELVIQ 2019- No Ijeoma 1 tablet Com mon 04-26 Millender Spirit 00:00: 00:00 - [facility] 00 :00 [facility] Apple Cider Apple Cider Yes Ijeoma as Common Vinegar Vinegar Millender directed [facility] Fish Oil Fish Oil Yes Ijeoma 1 capsule C ommon [facility] Folic Acid Folic Acid Yes Ijeoma 1 tablet [facility] Collagen Collagen Yes Ijeoma as Common Millender directed [facility] B12 Fast B12 Fast Yes Ijeoma as Common Dissolve Dissolve Eating [facility] Vitamin C Vitamin C Yes Ijeoma 1 tablet Common [facility] Probiotic Probiotic Yes Ijeoma as Comm on Millender [facility] Immunizations Ordered Immunization Filled Immunization Date Status Commen ts Source Name Name Rubella Unknown Completed Millicent Seybold - External Tdap- (Boostrix, Unknown Completed Millicent S eybold - Adacel) External Tdap- (Boostrix, Unknown Completed Millicent S eybold - Adacel) External Rubella Unknown Completed Millicent Seybold - External Tdap- (Boostrix, Unknown Completed Millicent S eybold - Adacel) External Tdap- (Boostrix, Unknown Completed Millicent S eybold - Adacel) External Rubella Unknown Completed Millicent Seybold - External Tdap- (Boostrix, Unknown Completed Millicent S eybold - Adacel) External Tdap- (Boostrix, Unknown Completed Millicent S eybold - Adacel) External Rubella Unknown Completed Millicent Seybold - External Tdap- (Boostrix, Unknown Completed Millicent S eybold - Adacel) External Tdap- (Boostrix, Unknown Completed Millicent S eybold - Adacel) External Vital Signs Vital Name Observation Time Observation Value Comments Source Systolic blood 2023-09-13 19:12:00 108 mm[Hg] Millicent Seybold - pressure External Diastolic blood 2023-09-13 19:12:00 76 mm[Hg] Kelse y Seybold - pressure External Heart rate 2023-09-13 19:12:00 70 /min Millicent S eybold - External Body temperature 2023-09-13 19:12:00 37.11 Mai Casandra ey Seybold - External Respiratory rate 2023-09-13 19:12:00 17 /min Casandra ey Seybold - External Body height 2023-09-13 19:12:00 172.7 cm Millicent S eybold - External Body weight 2023-09-13 19:12:00 111.403 kg Millicent S eybold - External BMI 2023-09-13 19:12:00 37.34 kg/m2 Millicent S eybold - External Systolic blood 2023-08-10 19:03:00 124 mm[Hg] Millicent Seybold - pressure External Diastolic blood 2023-08-10 19:03:00 77 mm[Hg] Isaacse y Seybold - pressure External Heart rate 2023-08-10 18:37:00 91 /min Millicent S eybold - External Body temperature 2023-08-10 18:37:00 36.61 Mai Casandra ey Seybold - External Respiratory rate 2023-08-10 18:37:00 14 /min Casandra ey Seybold - External Body height 2023-08-10 18:37:00 172.7 cm Millicent Rodrigues eybold - External Body weight 2023-08-10 18:37:00 110.678 kg Millicent S eybold - External BMI 2023-08-10 18:37:00 37.10 kg/m2 Millicent S eybold - External Oxygen saturation in 2023-08-10 18:37:00 99 /min Millicent Faustin - Arterial blood by External Pulse oximetry Systolic blood 2023-06-20 20:04:00 125 mm[Hg] Millicent Seybold - pressure External Diastolic blood 2023-06-20 20:04:00 83 mm[Hg] Isaacse y Seybold - pressure External Heart rate 2023-06-20 20:04:00 82 /min Millicent S eybold - External Body temperature 2023-06-20 20:04:00 36.89 Mai Casandra ey Seybold - External Respiratory rate 2023-06-20 20:04:00 16 /min Casandra ey Seybold - External Body height 2023-06-20 20:04:00 172.7 cm Millicent Rodrigues eybold - External Body weight 2023-06-20 20:04:00 109.317 kg Millicent S eybold - External BMI 2023-06-20 20:04:00 36.64 kg/m2 Millicent Rodrigues eybold - External Body weight 2023-05-20 19:02:00 107.502 kg Millicent Rodrigues eybold - External BMI 2023-05-20 19:02:00 36.04 kg/m2 Millicent Rodrigues eybold - External Body height 2023-05-20 19:02:00 172.7 cm Millicent Rodrigues eybold - External Body weight 2023-05-09 15:07:00 113.036 kg Millicent Rodrigues eybold - External BMI 2023-05-09 15:07:00 37.89 kg/m2 Millicent Rodrigues eybold - External Systolic blood 2023-04-25 20:24:00 116 mm[Hg] Millicent Seybold - pressure External Diastolic blood 2023-04-25 20:24:00 70 mm[Hg] Tati y Seybold - pressure External Heart rate 2023-04-25 20:24:00 84 /min Millicent Rodrigues eybold - External Body temperature 2023-04-25 20:24:00 37.06 Mai Casandra ey Seybold - External Respiratory rate 2023-04-25 20:24:00 17 /min Casandra vela Seybold - External Body height 2023-04-25 20:24:00 172.7 cm Millicent Rodrigues eybold - External Body weight 2023-04-25 20:24:00 114.941 kg Millicent Rodrigues eybold - External BMI 2023-04-25 20:24:00 38.53 kg/m2 Millicent Rodrigues eybold - External Systolic blood 2023-02-17 18:12:00 120 mm[Hg] Millicent Seybold - pressure External Diastolic blood 2023-02-17 18:12:00 78 mm[Hg] Isaacse y Seybold - pressure External Heart rate 2023-02-17 18:12:00 90 /min Millicent Rodrigues eybold - External Body temperature 2023-02-17 18:12:00 36.44 Mai Casandra ey Seybold - External Respiratory rate 2023-02-17 18:12:00 18 /min Casandra ey Seybold - External Body height 2023-02-17 18:12:00 172.7 cm Millicent S eybold - External Body weight 2023-02-17 18:12:00 108.591 kg Millicent S eybold - External BMI 2023-02-17 18:12:00 36.40 kg/m2 Millicent S eybold - External Body weight 2023-02-08 14:26:00 107.502 kg Millicent S eybold - External BMI 2023-02-08 14:26:00 36.04 kg/m2 Millicent S eybold - External Systolic blood 2022-12-17 19:52:00 121 mm[Hg] Millicent Seybold - pressure External Diastolic blood 2022-12-17 19:52:00 78 mm[Hg] Isaacse y Seybold - pressure External Heart rate 2022-12-17 19:52:00 92 /min Millicent Rodrigues eybold - External Respiratory rate 2022-12-17 19:52:00 20 /min Casandra vela Seybold - External Body height 2022-12-17 19:52:00 172.7 cm Millicent Rodrigues eybold - External Body weight 2022-12-17 19:52:00 107.775 kg Millicent Rodrigues eybold - External BMI 2022-12-17 19:52:00 36.13 kg/m2 Millicent Rodrigues eybold - External Procedures This patient has no known procedures. Encounters Start End Encounter Admission Attending Care Care Encounter Source Date/Time Date/Time Type Type Clinicians Facility Department ID [id number] Common 11:39:01 Linda [address] [facility] 2022-02-[address] [id number] Common 15:43:00 Linda [facility] 2023-11-08 2023-11-08 Outpatient AKOGLU MILLICENT MURO [id number] Millicent 14:15:00 14:15:00 AYSENUR Seybol d 2023-11-08 2023-11-08 Outpatient YARI, MILLICENT MURO [id number] Millicent 13:30:00 13:30:00 SANDRINE Seybo ld 2023-09-23 2023-09-23 Outpatient MILLICENT GRIFFITH [id number] Millicent 11:30:00 11:30:00 BALBINA Seybol d 2023-09-13 2023-09-13 Outpatient AKOGLUMILLICENT [id number] Millicent 14:15:00 14:15:00 AYSENUR Seybol d 2023-09-12 2023-09-12 Outpatient ARRIAZAMILLICENT [id number] Millicent 08:00:00 08:00:00 SHRUTHI Seybol d 2023-09-09 2023-09-09 Outpatient MAQBOOLMILLICENT [id number] Millicent 10:30:00 10:30:00 GURPREET Seybol d 2023-09-07 2023-09-07 Outpatient AKOGLUMILLICENT [id number] Millicent 00:00:00 00:00:00 AYSENUR Seybol d 2023-09-06 2023-09-06 Outpatient AKOGLUMILLICENT [id number] Millicent 00:00:00 00:00:00 AYSENUR Seybol d 2023-08-23 2023-08-23 Outpatient JAMALYARIAMILLICENT [id number] Millicent 15:45:00 15:45:00 SAHAR Seybol d 2023-08-11 2023-08-11 Outpatient LAB90 MILLICENT MURO [id number] Millicent 14:35:00 14:35:00 Seybol d 2023-08-11 2023-08-11 Outpatient MILLICENT GRIFFITH [id number] Millicent 00:00:00 00:00:00 BALBINA Seybol d 2023-08-10 2023-08-10 Outpatient LAB90 MILLICENT MURO [id number] Millicent 14:15:00 14:15:00 Seybol d 2023-08-10 2023-08-10 Outpatient NACHO, MILLICENT MURO [id number] Millicent 13:30:00 13:30:00 BALBINA Seybol d 2023-07-26 2023-07-26 Outpatient LAB90 MILLICENT MURO [id number] Millicent 12:15:00 12:15:00 Seybol d 2023-06-25 2023-06-25 Outpatient AKOGLU, MILLICENT MURO [id number] Millicent 00:00:00 00:00:00 AYSENUR Seybol d 2023-06-20 2023-06-20 Outpatient LAB47 MILLICENT MURO [id number] Millicent 15:30:00 15:30:00 Seybol d 2023-06-20 2023-06-20 Outpatient AKOGLUMILLICENT [id number] Millicent 15:00:00 15:00:00 AYSENUR Seybol d 2023-06-14 2023-06-14 Outpatient AKOGLU, MILLICENT MURO [id number] Millicent 16:00:00 16:00:00 AYSENUR Seybol d 2023-06-09 2023-06-09 Outpatient LAB90 MILLICENT MURO [id number] Millicent 15:05:00 15:05:00 Seybol d 2023-05-20 2023-05-20 Outpatient AKSEB, MILLICENT MURO [id number] Millicent 14:00:00 14:00:00 AYSENUR Seybol d 2023-05-20 2023-05-20 Outpatient AKOGLU, MILLICENT MURO [id number] Millicent 00:00:00 00:00:00 AYSENUR Seybol d 2023-05-09 2023-05-09 Outpatient YARIMILLICENT [id number] Millicent 09:30:00 09:30:00 SANDRINE Seybo ld 2023-05-04 2023-05-04 Outpatient AKMILLICENT GRIGSBY [id number] Millicent 00:00:00 00:00:00 AYSENUR Seybol d 2023-04-25 2023-04-25 Outpatient MILLICENT PRICE MILLICENT [id number] Millicent 15:15:00 15:15:00 AYSENUR Seybol d 2023-04-25 2023-04-25 Outpatient AKOGLU MILLICENT MURO [id number] Millicent 00:00:00 00:00:00 AYSENUR Seybol d 2023-04-25 2023-04-25 Outpatient AKOGLU MILLICENT MURO [id number] Millicent 00:00:00 00:00:00 AYSENUR Seybol d 2023-03-09 2023-03-09 Outpatient YARI MILLICENT MURO [id number] Millicent 00:00:00 00:00:00 SANDRINE Seybo ld 2023-02-17 2023-02-17 Outpatient OKORAFOR MILLICENT MURO [id number] Millicent 13:00:00 13:00:00 MIRLANDE Seybol d 2023-02-08 2023-02-08 Outpatient YARI MILLICENT MURO [id number] Millicent 09:30:00 09:30:00 SANDRINE Seybo ld 2022-12-17 2022-12-17 Outpatient LAB59 MILLICENT MURO [id number] Millicent 14:45:00 14:45:00 Seybol d 2022-12-17 2022-12-17 Outpatient NIKAHD MILLICENT MURO [id number] Millicent 14:00:00 14:00:00 AMIRHOSSEIN Se ybold 2022-12-03 2022-12-03 Outpatient ALBERT MILLICENT MURO [id number] Millicent 14:45:00 14:45:00 AYSENUR Seybol d 2022-11-26 2022-11-26 Outpatient Armand MORALES ROQUE [facility] [id number] Univers 10:30:00 10:30:00 [facility] 2022-11-12 2022-11-12 Outpatient Armand MORALES ROQUE [facility] [id number] Univers 14:00:00 14:00:00 [facility] 2022-10-08 2022-10-08 Outpatient VIKY PICKENS [facility] B [id number] Univers 11:30:00 11:30:00 VIKY NIÑO [facility] 2019-05-16 2019-05-16 Outpatient [facility] [id number] Common 15:15:00 15:15:[address] [facility] 2019-05-16 2019-05-16 Outpatient [facility] [id number] Common 11:20:00 11:20:00 [facility] [facility] [address] [facility] 2019-01-22 2019-01-22 [id number] Common 10:30:00 10:30:00 t Specialty/U Sp zhao Specialty rology - [facility] 2019-01-19 2019-01-19 [facility] [id number] Common 09:45:00 09:45:00 t [facility] [address] [facility] 2019-01-16 2019-01-16 [facility] [id number] Common 15:47:00 15:47:00 t [facility] [address] [facility] 2018-12-21 2018-12-21 [id number] Common 09:45:00 09:45:00 t [facility] [address] [facility] Results This patient has no known results.
[2023-09-21 16:33] LABS: Hematocrit 34.5 % (36.0-45.0); MPV 7.6 fL (7.6-11.3); Platelets 340 thou/uL (152-406)
[2023-09-21] MEDS ORDERED: TRANEXAMIC ACID 1,000 MG/10 ML VIAL IV ONE (17:37)
[2023-09-21 17:40] LABS: Urine Bacteria <20 /HPF (<20); Urine RBC >50 /HPF (None Seen)
[2023-09-21] MEDS ORDERED: NA CHLORIDE 0.9% 100 ML ONE (17:44)
[2023-09-21 18:28] LABS: Specific Gravity 1.019 (1.005-1.030); Urine Bilirubin NEGATIVE (Negative); Urine Blood Trace (Negative); Urine Clarity Extremely Turbid (Clear); Urine Color Yellow (Yellow); Urine Glucose 4+ (Over) (Negative); Urine Protein 1+ (Negative); Urine Urobilinogen Normal (Normal)
[2023-09-21 18:33] LABS: Specific Gravity 1.019 (1.005-1.030)
--- NOTE | 2023-09-21 19:47 | RAD REPORT ---
EXAM DESCRIPTION: US - Transvaginal Study Probe - 09/21/2023 6:53 pm CLINICAL HISTORY: VAGINAL BLEEDING COMPARISON: Abdomen Pelvis W Contrast dated 09/15/2019 TECHNIQUE: Sonographic grayscale and color flow images of the pelvis were obtained through transva ginal approach. FINDINGS: The uterus is normal in size, shape and echotexture. The uterus measures 9.8 cm in length. The endometrial stripe measures 11 mm, normal. Both ovaries are normal in size, shape and echotexture. The right ovary measures 6.0 x 4.0 x 4.9 cm. Eight contains a complex with cyst with debris, measuring 4.1 x 4.2 x 4.1 cm. The left ovary measure s 2.4 x 2.2 x 3.1 cm. No solid adnexal masses. Normal Doppler blood flow was demonstrated to both ovaries. No significant pelvic ascites. IMPRESSION: Endometrium measures 11 millimeter in thickness, with no suspicious focal lesion, please correlate with menstrual phase. Ovoid 4.2 cm right ovarian cyst with debris, may represent a hemorrhagic cyst.
--- NOTE | 2023-09-21 20:12 | ER ---
Nurse's Notes [facility] Name: Pricila Hanson Age: 38 yrs Sex: Female : 1985 Arrival Date: 09/21/2023 Time: 15:14 Bed 9 Private MD: Diagnosis: Postcoital and contact bleeding;Other ovarian cysts Presentation: 09/21 15:23 Coronavirus screen: At this time, the client does not indicate any symptoms associated mb9 with coronavirus-19. Ebola Screen: No symptoms or risks identified at this time. Initial Sepsis Screen: Does the patient meet any 2 criteria? No. Patient's initial sepsis screen is negative. Does the patient have a suspected source of infection? No. Patient's initial sepsis screen is negative. Risk Assessment: Do you want to hurt yourself or someone else? Patient reports no desire to harm self or others. Onset of symptoms was September 21, 2023. 15:23 Method Of Arrival: Ambulatory 9 15:25 Chief complaint: Chief complaint: Patient states: "After intercourse on Tuesday, I mb9 started spotting and having vaginal bleeding. Today it was clots pouring out of me when I urinate. I have a history of being anemic and was worried. I feel fatigued and cold.". 15:44 Acuity: CECIL 3 mb9 Triage Assessment: 15:47 General: Appears in no apparent distress. Behavior is calm, cooperative. Pain: Denies mb9 pain. EENT: No signs and/or symptoms were reported regarding the EENT system. Neuro: Linn Agitation-Sedation Scale (RASS): 0 - Alert and Calm Level of Consciousness is awake, alert, obeys commands, Oriented to person, place, time, situation, Appropriate for age Reports fatigue . Cardiovascular: Patient's skin is warm and dry. Respiratory: Airway is patent Respiratory effort is even, unlabored, Respiratory pattern is regular, agonal. : Reports vaginal bleeding that is with clots, moderate flow. Derm: Skin is pink, warm \\T\\ dry. Musculoskeletal: Range of motion: intact in all extremities. 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 - Social history:: Smoking status: Patient denies any tobacco usage or history of. Screenin:16 Abuse screen: Denies threats or abuse. Nutritional screening: No deficits noted. ap3 Tuberculosis screening: No symptoms or risk factors identified. 16:17 [facility] ED Fall Risk Assessment (Adult) History of falling in the last 3 months, ap3 including since admission No falls in past 3 months (0 pts). Assessment: 16:15 General: Appears in no apparent distress. comfortable, Behavior is calm, cooperative, ap3 appropriate for age. Pain: Denies pain. Neuro: Level of Consciousness is awake, alert, obeys commands, Oriented to person, place, time, situation, Appropriate for age. Cardiovascular: Patient's skin is warm and dry. Respiratory: Airway is patent Respiratory effort is even, unlabored, Respiratory pattern is regular, symmetrical. : Reports vaginal bleeding that is with clots. Vital Signs: 15:44 BP 128 / 85; Pulse 94; Resp 18; Temp 97.1; Pulse Ox 100% ; Weight 108.86 kg; Height 5 mb9 ft. 8 in. ; 20:20 BP 124 / 87; Pulse 74; Pulse Ox 100% ; ap3 15:44 Body Mass Index 36.49 (108.86 kg, 172.72 cm) mb9 ED Course: 15:20 Patient arrived in ED. mg5 15:20 Cherry Little PA-C is PHCP. sb4 15:20 Yaakov Estrada MD is Attending Physician. sb4 15:22 Arm band placed on. mb9 15:46 Triage completed. mb9 16:00 Ashley Molina, JUAREZ is Primary Nurse. ap3 16:15 Initial lab(s) drawn, by ar, sent to lab. Inserted saline lock: 22 gauge in left ap3 antecubital area, using aseptic technique. Blood collected. 16:16 Patient has correct armband on for positive identification. ap3 17:01 Test, Urine Sent. mb9 17:01 UAM Sent. mb9 18:55 Transvaginal Study (probe) In Process Unspecified. EDMS 19:05 PHCP role handed off by Cherry Little PA-C kb 19:05 Susan Parra FNP-C is PHCP. kb 20:12 Sharifa Méndez MD is Referral Physician. kb 20:20 No provider procedures requiring assistance completed. IV discontinued, intact, ap3 bleeding controlled, No redness/swelling at site. Pressure dressing applied. 20:21 Provided Education on: discharge instructions. ap3 Administered Medications: 17:44 Drug: tranexamic acid 1000 mg IV at calculated rate once; administer at a rate not to ap3 exceed 100 mg per min Route: IV; Rate: calculated rate; Site: left antecubital; 18:05 Follow up: IV Status: Completed infusion ap3 Medication: 20:21 VIS not applicable for this client. ap3 Outcome: 20:12 Discharge ordered by . kb 20:21 Discharged to home ambulatory, ap3 20:21 Condition: good 20:21 Discharge instructions given to patient, Instructed on discharge instructions, follow up and referral plans. Demonstrated understanding of instructions, follow-up care, 20:21 Patient left the ED. ap3 Signatures: Dispatcher [employer] EDMS Susan Parra FNP-C FNP-Ckb Prokisch, Amanda, RN RN ap3 Cherry Little PA-C PA-C sb4 Alisia Crisostomo RN RN mb9 Estephania Brown mg5 Corrections: (The following items were deleted from the chart) 15:28 15:23 Chief complaint: mb9 mb9 15:46 15:25 Chief complaint: mb9 mb9
--- NOTE | 2023-09-21 20:12 | EDPHYS ---
Physician Documentation [facility] Name: Pricila Hanson Age: 38 yrs Sex: Female : 1985 Arrival Date: 09/21/2023 Time: 15:14 Bed 9 Private MD: ED Physician Yaakov Estrada HPI: 09/21 16:00 This 38 yrs old Black Female presents to ER via Ambulatory with complaints of vaginal sb4 bleeding. 16:00 The patient presents with vaginal bleeding that is heavy, with clots. Onset: The sb4 symptoms/episode began/occurred today. Modifying factors: The symptoms are alleviated by nothing, the symptoms are aggravated by sexual intercourse. Associated signs and symptoms: The patient has no apparent associated signs or symptoms. The patient is sexually active. The patient's method of control includes nothing. patient reports vaginal bleeding after sex. she states this has been occurring with her new partner but never this severely. reports passage of several large clots and is still actively bleeding. denies any pain. 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 - Social history:: Smoking status: Patient denies any tobacco usage or history of. ROS: 16:00 Positive for vaginal discharge, sb4 16:00 Constitutional: Negative for fever, chills, and weight loss, 16:00 All other systems are negative, Exam: 17:16 Constitutional: This is a well developed, well nourished patient who is awake, alert, sb4 and in no acute distress. Head/Face: Normocephalic, atraumatic. Eyes: Extra-ocular motions intact. Periorbital areas with no swelling, redness, or edema. ENT: Mucous membranes moist. Cardiovascular: Regular rate and rhythm with a normal S1 and S2. Respiratory: Lungs have equal breath sounds bilaterally, clear to auscultation and percussion. No rales, rhonchi or wheezes noted. No increased work of breathing, no retractions or nasal flaring. Abdomen/GI: Soft, non-tender, no distension. Skin: Warm, dry with normal turgor. Normal color with no rashes, no lesions, and no evidence of cellulitis. MS/ Extremity: Pulses equal, no cyanosis. Neurovascular intact. Full, normal range of motion. Neuro: Awake and alert, GCS 15, oriented to person, place, time, and situation. Motor strength 5/5 in all extremities. Sensory grossly intact. 17:16 : Pelvic Exam: External exam: is normal, no erythema, not excoriated, Speculum exam: moderate bleeding, blood clots in vaginal vault, no cervicitis, os that is closed, no tissue in cervix is seen, no tissue in vagina is seen, the nurse was present for the exam, Vital Signs: 15:44 BP 128 / 85; Pulse 94; Resp 18; Temp 97.1; Pulse Ox 100% ; Weight 108.86 kg; Height 5 mb9 ft. 8 in. ; 20:20 BP 124 / 87; Pulse 74; Pulse Ox 100% ; ap3 15:44 Body Mass Index 36.49 (108.86 kg, 172.72 cm) mb9 MDM: 15:24 Patient medically screened. sb4 17:16 Differential diagnosis: dysmenorrhea, ectopic , endometriosis, sb4 menometrorrhagia, menorrhea, postcoital bleeding, ruptured ectopic , uterine fibroids. 20:11 Data reviewed: vital signs, nurses notes. Counseling: I had a detailed discussion with kb the patient and/or guardian regarding the historical points, exam findings, and any diagnostic results supporting the discharge/admit diagnosis, lab results, radiology results, the need for outpatient follow up, an OB/Gyne specialist, to return to the emergency department if symptoms worsen or persist or if there are any questions or concerns that arise at home. 09/21 15:50 Order name: CBC w/o diff; Complete Time: 16:47 sb4 09/21 15:50 Order name: BMP; Complete Time: 18:16 sb4 09/21 15:59 Order name: UAM; Complete Time: 18:33 sb4 09/21 15:59 Order name: Test, Urine; Complete Time: 18:34 sb4 09/21 18:34 Order name: Urine Culture EDTN 11/01 17:15 Order name: Transvaginal Study (probe); Complete Time: 19:51 sb4 09/21 15:50 Order name: Pelvic Exam Setup; Complete Time: 16:15 sb4 09/21 15:56 Order name: IV Saline Lock; Complete Time: 16:15 mb9 Administered Medications: 17:44 Drug: tranexamic acid 1000 mg IV at calculated rate once; administer at a rate not to ap3 exceed 100 mg per min Route: IV; Rate: calculated rate; Site: left antecubital; 18:05 Follow up: IV Status: Completed infusion ap3 Disposition Summary: 09/21/23 20:12 Discharge Ordered Notes: Location: Home kb Problem: new kb Symptoms: are unchanged kb Condition: Stable kb Diagnosis - Postcoital and contact bleeding kb - Other ovarian cysts kb Followup: sb4 - With: Sharifa Méndez MD - When: As needed - Reason: Recheck today's complaints, Re-evaluation by your physician Discharge Instructions: - Ovarian Cyst, [id number] kb - Discharge Summary Sheet sb4 - Abnormal Uterine Bleeding, [id number] sb4 Forms: - Medication Reconciliation Form kb - Thank You Letter kb - Antibiotic Education kb - Prescription Opioid Use kb - Patient Portal Instructions kb - Leadership Thank You Letter kb Addendum: 09/26/2023 10:08 I was immediately available for consultation during this patient's visit. I did not e c2 personally see the patient or guide the patient's care.. Signatures: Dispatcher [employer] Susan Beck, LESLYEC Ashley Kumar RN RN ap3 Cherry Little PA-C PA-C sb4 Alisia Crisostomo RN RN mb9 Yaakov Estrada MD MD ec2
[2023-09-21 20:25] VITALS: TEMP 97.1; O2SAT 100
[2023-09-21 20:27] VITALS: BP 124/87
== END 2023-09-21 20:21 | disposition home or self-care (01) ==
LOC: ER 15:14
DX: N93.0 Postcoital and contact bleeding (principal); N83.299 Other ovarian cyst, unspecified side; Z88.8 Allergy status to other drugs, medicaments and biological substances
CPT/HCPCS: 36415; 76830; 80048; 81001; 81025; 85027; 87086; 87088; 96365; 99284

== ENCOUNTER 2024-06-23 09:32 | Emergency (ER) | payer OTHER ==
--- OUTSIDE RECORDS SUMMARY | 2024-06-23 09:36 | XMS REPORT | Continuity of Care Document ---
Author Name Unknown Address [address] [facility] [place] [address] [facility] Address [address] [facility] [place] [address] Care Team Providers Care Operating Cost Clerk Name Role Phone RADHA GOINSJIMENA Acuna Primary Care Physician Unavai Linda Bonilla Attending Clinician Unavailable TYRESE RICHARDSON Attending Clinician Unavailable LAB90 Attending Clinician Unavailable GLADYS OSPINA Attending Clinician Unava AUDI Sarkar Attending Clinician Unavailabl BALBINA Yuen Attending Clinician Unavailab CLARK Wu Attending Clinician Unavailable MD PATY Attending Clinician Unavailab JEY Gómez Attending Clinician Unavailable ZACK PRICE Attending Clinician Unavailable IDRIS ABREU Attending Clinician Unavailable SANDRINE GREENBERG Attending Clinician Unavailab le LAB76 Attending Clinician Unavailable ELISE THOMPSON Attending Clinician Unavailable SHRUTHI ARRIAZA Attending Clinician Unavailable GURPREET MAY Attending Clinician Unavailable KENDRICK DAVILA Attending Clinician Unavailabl e LAB47 Attending Clinician Unavailable MIRLANDE GRACE Attending Clinician Unavai lable LAB59 Attending Clinician Unavailable EMELY PATEL Attending Clinician Unavaila ROQUE Borges Attending Clinician Unavailable VIKY NIÑO Attending Clinician Unavaila VIKY Bolden Attending Clinician Unavaila ble Payers Payer Name Policy Type Policy Number Effective Date Expirati on Date Source [facility] 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 94 ON 9 [id number] 2022 00:00:00 [facility] [id number] Problems Condition Name Condition Details Condition Category Status Onset Date Resolution Date Last Treatment Date Treating Clinician Comments Source Insect bite hand, right, initial encounter Insect bite hand, right, initial encounter Disease Active - 00:00: 00 Millicent rodriguez Pain of right middle finger Pain of right middle finger Disease Active 02-07 00:00: 00 Millicent Liua michael Class 2 obesity due to excess calories without serious comorbidit y with body mass index (BMI) of 36.0 to 36.9 in adult Class 2 obesity due to excess calories without serious comorbidit y with body mass index (BMI) of 36.0 to 36.9 in adult Disease Active 2022-11 00:00: 00 Millicent Liua michael Class 2 obesity due to excess calories without serious comorbidit y with body mass index (BMI) of 38.0 to 38.9 in adult Class 2 obesity due to excess calories without serious comorbidit y with body mass index (BMI) of 38.0 to 38.9 in adult Disease Active 04-25 00:00: 00 Millicent Faustin - Alexaa michael Class 2 obesity due to excess calories without serious comorbidit y with body mass index (BMI) of 38.0 to 38.9 in adult Class 2 obesity due to excess calories without serious comorbidit y with body mass index (BMI) of 38.0 to 38.9 in adult Disease Active 04-25 00:00: 00 Millicent Faustin - Alexaa l Right-side d low back pain without sciatica, unspecifie d chronicity Right-side d low back pain without sciatica, unspecifie d chronicity Problem Active [facility] Constipati on, unspecifie d constipati on type Constipati on, unspecifie d constipati on type Problem Active [facility] Rectal pain Rectal pain Problem Active [facility] Elevated blood pressure reading without diagnosis of hypertensi on Elevated blood pressure reading without diagnosis of hypertensi on Problem Active [facility] External hemorrhoid External hemorrhoid Problem Active [facility] Morbid (severe) obesity due to excess calories Morbid (severe) obesity due to excess calories Problem Active [facility] Body mass index (BMI) of 40.0-44.9 in adult Body mass index (BMI) of 40.0-44.9 in adult Problem Active [facility] Depression screening Depression screening Problem Active [facility] Pelvic pressure in female Pelvic pressure in female Problem Active [facility] Screening for STD (sexually transmitte d disease) Screening for STD (sexually transmitte d disease) Diagnosis Active [facility] Allergies, Adverse Reactions, Alerts Allergy Name Allergy Type Status Severity Reaction(s) Onset Date Inactive Date Treating Clinician Comments Source Fexofenkeri aubree Propensi ty to adverse reaction s Active Rash 04-25 00:00: 00 Millicent Faustin - Externa l NO KNOWN ALLERGIE S Drug Class Active [facility] Social History Social Habit Start Date Stop Date Quantity Comments Source Gender identity 2023-02-07 10:33:17 Identifies as female gender (finding) Millicent Faustin - External Sexual orientation 2023-02-07 10:33:17 Heterosexual (finding) Millicent Faustin - External History of tobacco use Current smoker Millicent cárdenas - External History SDOH Alcohol Frequency Millicent diop - External History SDOH Alcohol Std Drinks Millicent juarez - External History SDOH Alcohol Binge Millicent Faustin - External Alcoholic beverage intake 2024-05-11 00:00:00 2024-05-11 00:00:00 Current drinker of alcohol (finding) Millicent Faustin - External Alcohol intake 2024-02-13 00:00:00 2024-02-13 00:00:00 Current drinker of alcohol (finding) Millicent Faustin - External History of Social function 2023-11-22 00:00:00 2023-11-22 00:00:00 Millicent Faustin - External Tobacco use and exposure 2023-02-08 00:00:00 2023-02-08 00:00:00 Smokeless tobacco non-user Millicent Faustin - External Alcohol Comment 2022-12-17 00:00:00 2022-12-17 00:00:00 Occ. Millicent Faustin - Chata Sex assigned at 1985 00:00:00 1985 00:00:00 Shahram Ricks Ramin - External Smoking Status Start Date Stop Date Source Ex-smoker 2023-02-08 00:00:00 2023-02-08 00:00:00 Gm quinones Ramin - External Never smoked tobacco Millicent Faustin - External Medications Ordered Medication Name Filled Medication Name Start Date Stop Date Current Medication? Ordering Clinician Indication Dosage Frequency Signature (SIG) Comments Components Source Collagen-Vi tamin C-Biotin 500-50-0.8 MG oral Capsule 05-11 15:51: 31 Yes every 12 hours. Millicent rodriguez Probiotic Product (Probiotic Pearls Womens) oral Capsule 05-11 15:51: 31 Yes as directed Orally Millicent rodriguez Black Pepper-Turm amaury (Turmeric Curcumin) 5-1000 MG oral Capsule 05-11 15:51: 31 Yes as directed Orally Millicent rodriguez Triamcinolo ne Acetonide 0.1 % apply externally Cream 05-11 15:51: 31 Yes .1% Apply 0.1 % topically as needed. Millicent rodriguez Mupirocin (BACTROBAN) 2 % apply externally Ointment 04-11 00:00: 00 Yes [id number] 1{appli cation} Apply 1 Applicatio n topically 2 times daily. Millicent rodriguez Amoxicillin -Pot Clavulanate 875-125 MG oral Tablet 04-11 00:00: 00 05-11 00:00 :00 No [id number] 1{tbl} Take 1 tablet by mouth every 12 hours Please take with food. Millicent rodriguez Collagen-Vi tamin C-Biotin 500-50-0.8 MG oral Capsule 02-27 16:36: 17 Yes every 12 hours. Millicent rodriguez Probiotic Product (Probiotic Pearls Womens) oral Capsule 02-27 16:36: 17 Yes as directed Orally Millicent rodriguez Black Pepper-Turm amaury (Turmeric Curcumin) 5-1000 MG oral Capsule 02-27 16:36: 17 Yes as directed Orally Millicent rodriguez Phentermine HCl 15 MG oral Capsule 02-27 00:00: 00 05-29 04:59 :00 No [id number] 15mg Take 1 capsule (15 mg total) by mouth every morning. Millicent rodriguez Topiramate 25 MG oral Tablet 02-27 00:00: 00 05-29 04:59 :00 No [id number] 50mg Take 2 tablets (50 mg total) by mouth every night at bedtime Start topiramate 25 mg daily for 2 weeks then increase to 50 mg daily and continue same. Millicent rodriguez Collagen-Vi tamin C-Biotin 500-50-0.8 MG oral Capsule 02-07 15:42: 09 Yes every 12 hours. Millicent rodriguez Probiotic Product (Probiotic Pearls Womens) oral Capsule 02-07 15:42: 09 Yes as directed Orally Millicent rodriguez Black Pepper-Turm amaury (Turmeric Curcumin) 5-1000 MG oral Capsule 02-07 15:42: 09 Yes as directed Orally Millicent rodriguez FLUTICASONE PROPIONATE, NASAL, 50 MCG/ACT nasal Suspension 02-01 00:00: 00 Yes [id number] 50ug Use 1 spray (50 mcg total) in each nostril daily Use daily as directed. Millicent rodriguez Levocetiriz ine Dihydrochlo ride (Xyzal Allergy 24HR) 5 MG oral Tablet 02-01 00:00: 00 Yes [id number] 5mg Take 1 tablet (5 mg total) by mouth every day at 5:00 PM. Millicent rodriguez Triamcinolo ne Acetonide 0.1 % apply externally Cream 02-01 00:00: 00 03-02 04:59 :00 No [id number] .1% Apply 0.1 % topically as needed. Millicent rodriguez NEOMYCIN-PO LYMYXIN-HC, OTIC, 1 % otic Solution 12-13 00:00: 00 Yes [id number] 56233 3[drp] [id number] 3D Place 3 drops into the left ear 3 times daily as needed. Millicent rodriguez Phentermine HCl 37.5 MG oral Tablet 2022-11- 00:00: 00 02-27 00:00 :00 No [id number] 37.5mg Take 1 tablet (37.5 mg total) by mouth every morning (before breakfast) . Millicent rodriguez medroxyPROG ESTERone Acetate 10 MG oral Tablet 2022-11 1-05 00:00: 00 12-13 00:00 :00 No TAKE 2 TABLETS BY MOUTH THREE TIMES DAILY FOR 7 DAYS Millicent rodriguez Phentermine HCl 37.5 MG oral Tablet 2022-11 00:00: 00 11-08 00:00 :00 No [id number] 37.5mg Take 1 tablet (37.5 mg total) by mouth every morning (before breakfast) . Millicent rodriguez Benzocaine- Menthol (Sore Throat Lozenges) 6-10 MG mouth/throa t Lozenge 08-10 00:00: 00 09-13 00:00 :00 No [id number] 1{lozen ge} Place 1 lozenge in the mouth or throat 2 times daily. Millicent rodriguez Phentermine HCl 37.5 MG oral Tablet 8- 00:00: 00 09-13 00:00 :00 No [id number] 37.5mg Take 1 tablet (37.5 mg total) by mouth every morning (before breakfast) Millicent rodriguez Phentermine HCl 37.5 MG oral Tablet 05-20 00:00: 00 Yes [id number] 37.5mg Take 1 tablet (37.5 mg total) by mouth every morning (before breakfast) Millicent rodriguez Azelaic Acid 15 % apply externally Gel 05-09 00:00: 08-10 00:00 :00 No [id number] Apply qam to face and chest for acne Millicent rodriguez Tretinoin 0.05 % apply externally Cream 05-09 00:00: 00 08-10 00:00 :00 No [id number] Apply pea-sized amount to face and, chest qHS for acne. Not for cosmetic purposes. Millicent rodriguez Phentermine HCl 37.5 MG oral Tablet 04-25 00:00: 00 05-20 00:00 :00 No [id number] 37.5mg Take 1 tablet (37.5 mg total) by mouth every morning (before breakfast) Millicent rodriguez Hydroquinon e 4 % apply externally Cream 03-09 00:00: 00 Yes [id number] Apply sparingly daily to brown spots, increase to BID as tolerated. Not for use for more than 3 months. Millicent rodriguez Fexofenadin e (SONIA) 180 MG oral Tablet 02-17 00:00: 00 Yes [id number] 180mg Take 1 tablet (180 mg total) by mouth daily Millicent rodriguez Azelastine- Fluticasone 137-50 MCG/ACT nasal Suspension 02-17 00:00: 00 08-10 00:00 :00 No [id number] 1{spray } Use 1 spray in each nostril 2 times daily Millicent rodriguez Hydroquinon e 4 % apply externally Cream 02-08 00:00: 00 Yes [id number] Apply sparingly daily to brown spots, increase to BID as tolerated. Not for use for more than 3 months. Millicent rodriguez Azelaic Acid 15 % apply externally Gel 02-08 00:00: 00 05-09 00:00 :00 No [id number] Apply qam to face and chest for acne Millicent rodriguez Tretinoin 0.05 % apply externally Cream 02-08 00:00: 00 05-09 00:00 :00 No [id number] Apply pea-sized amount to face and, chest qHS for acne. Not for cosmetic purposes. Millicent Faustin - Externa l No known medications 12-17 13:48: 02 No No known medication s Millicent Herediaybold - Externa l BELVIQ BELVIQ 04-26 00:00: 00 08-24 00:00 :00 No Ijeoma Millender 1 tablet [facility] Apple Cider Vinegar Apple Cider Vinegar Yes Ijeoma Millender as directed [facility] Fish Oil Fish Oil Yes Ijeoma Millender 1 capsule [facility] Folic Acid Folic Acid Yes Ijeoma Millender 1 tablet [facility] Collagen Collagen Yes Ijeoma Millender as directed [facility] B12 Fast Dissolve B12 Fast Dissolve Yes Ijeoma Millender as directed [facility] Vitamin C Vitamin C Yes Ijeoma Millender 1 tablet [facility] Probiotic Probiotic Yes Ijeoma Millender as directed [facility] Immunizations Ordered Immunization Name Filled Immunization Name Date Status Comments Source Rubella Unknown Completed Millicent Sey bold - External Tdap- (Boostrix, Adacel) Unknown Completed Millicent Seybold - External Tdap- (Boostrix, Adacel) Unknown Completed Millicent Seybold - External Rubella Unknown Completed Millicent Sey bold - External Tdap- (Boostrix, Adacel) Unknown Completed Millicent Seybold - External Tdap- (Boostrix, Adacel) Unknown Completed Millicent Seybold - External Rubella Unknown Completed Millicent Sey bold - External Tdap- (Boostrix, Adacel) Unknown Completed Millicent Seybold - External Tdap- (Boostrix, Adacel) Unknown Completed Millicent Seybold - External Rubella Unknown Completed Millicent Sey bold - External Tdap- (Boostrix, Adacel) Unknown Completed Millicent Seybold - External Tdap- (Boostrix, Adacel) Unknown Completed Millicent Seybold - External Rubella Unknown Completed Millicent Sey bold - External Tdap- (Boostrix, Adacel) Unknown Completed Millicent Seybold - External Tdap- (Boostrix, Adacel) Unknown Completed Millicent Seybold - External Rubella Unknown Completed Millicent Sey bold - External Tdap- (Boostrix, Adacel) Unknown Completed Millicent Seybold - External Tdap- (Boostrix, Adacel) Unknown Completed Millicent Seybold - External Rubella Unknown Completed Millicent Sey bold - External Tdap- (Boostrix, Adacel) Unknown Completed Millicent Seybold - External Tdap- (Boostrix, Adacel) Unknown Completed Millicent Seybold - External Rubella Unknown Completed Millicent Sey bold - External Tdap- (Boostrix, Adacel) Unknown Completed Millicent Seybold - External Tdap- (Boostrix, Adacel) Unknown Completed Millicent Seybold - External Rubella Unknown Completed Millicent Sey bold - External Tdap- (Boostrix, Adacel) Unknown Completed Millicent Seybold - External Tdap- (Boostrix, Adacel) Unknown Completed Millicent Seybold - External Rubella Unknown Completed Millicent Sey bold - External Tdap- (Boostrix, Adacel) Unknown Completed Millicent Seybold - External Tdap- (Boostrix, Adacel) Unknown Completed Millicent Seybold - External Rubella Unknown Completed Millicent Sey bold - External Tdap- (Boostrix, Adacel) Unknown Completed Millicent Seybold - External Tdap- (Boostrix, Adacel) Unknown Completed Millicent Seybold - External Rubella Unknown Completed Millicent Sey bold - External Tdap- (Boostrix, Adacel) Unknown Completed Millicent Seybold - External Tdap- (Boostrix, Adacel) Unknown Completed Millicent Seybold - External Rubella Unknown Completed Millicent Sey bold - External Tdap- (Boostrix, Adacel) Unknown Completed Millicent Seybold - External Tdap- (Boostrix, Adacel) Unknown Completed Millicent Seybold - External Rubella Unknown Completed Millicent Sey bold - External Tdap- (Boostrix, Adacel) Unknown Completed Millicent Seybold - External Tdap- (Boostrix, Adacel) Unknown Completed Millicent Seybold - External Rubella Unknown Completed Millicent Sey bold - External Tdap- (Boostrix, Adacel) Unknown Completed Millicent Seybold - External Tdap- (Boostrix, Adacel) Unknown Completed Millicent Seybold - External Vital Signs Vital Name Observation Time Observation Value Comments S ource Systolic blood pressure 2024-05-11 20:45:00 118 mm[Hg] Millicent Herediaybo ld - External Diastolic blood pressure 2024-05-11 20:45:00 72 mm[Hg] Millicent Herediaybo ld - External Heart rate 2024-05-11 20:45:00 78 /min Kelse y Seybold - External Body temperature 2024-05-11 20:45:00 36.94 Mai Millicent Seybold - External Respiratory rate 2024-05-11 20:45:00 18 /min Millicent Herediaybold - External Body height 2024-05-11 20:45:00 172.7 cm Casandra ey Seybold - External Body weight 2024-05-11 20:45:00 109.317 kg Casandra ey Seybold - External BMI 2024-05-11 20:45:00 36.64 kg/m2 Casandra ey Seybold - External Oxygen saturation in Arterial blood by Pulse oximetry 2024-05-11 20:45:00 98 /min Millicent Herediaybo ld - External Systolic blood pressure 2024-04-11 19:41:00 114 mm[Hg] Millicent Herediaybo ld - External Diastolic blood pressure 2024-04-11 19:41:00 70 mm[Hg] Millicent Herediaybo ld - External Heart rate 2024-04-11 19:41:00 79 /min Isaacse y Seybold - External Body temperature 2024-04-11 19:41:00 37.06 Mai Millicent Seybold - External Respiratory rate 2024-04-11 19:41:00 18 /min Millicent Herediaybold - External Body height 2024-04-11 19:41:00 172.7 cm Casandra ey Seybold - External Body weight 2024-04-11 19:41:00 112.946 kg Casandra ey Seybold - External BMI 2024-04-11 19:41:00 37.86 kg/m2 Casandra ey Seybold - External Oxygen saturation in Arterial blood by Pulse oximetry 2024-04-11 19:41:00 98 /min Millicent Herediaybo ld - External Systolic blood pressure 2024-02-28 21:35:00 120 mm[Hg] Millicent Seybo ld - External Diastolic blood pressure 2024-02-28 21:35:00 78 mm[Hg] Millicent Seybo ld - External Heart rate 2024-02-28 21:35:00 77 /min Kelse y Seybold - External Respiratory rate 2024-02-28 21:35:00 18 /min Millicent Seybold - External Body height 2024-02-28 21:35:00 172.7 cm Casandra ey Seybold - External Body weight 2024-02-28 21:35:00 116.121 kg Casandra ey Seybold - External BMI 2024-02-28 21:35:00 38.92 kg/m2 Casandra ey Seybold - External Systolic blood pressure 2024-02-08 20:42:00 112 mm[Hg] Millicent Seybo ld - External Diastolic blood pressure 2024-02-08 20:42:00 68 mm[Hg] Millicent Seybo ld - External Heart rate 2024-02-08 20:42:00 84 /min Isaacse y Seybold - External Body temperature 2024-02-08 20:42:00 36.89 Mai Millicent Seybold - External Respiratory rate 2024-02-08 20:42:00 18 /min Millicent Seybold - External Body height 2024-02-08 20:42:00 172.7 cm Casandra ey Seybold - External Body weight 2024-02-08 20:42:00 114.76 kg Casandra ey Seybold - External BMI 2024-02-08 20:42:00 38.47 kg/m2 Casandra ey Seybold - External Oxygen saturation in Arterial blood by Pulse oximetry 2024-02-08 20:42:00 98 /min Millicent Seybo ld - External Systolic blood pressure 2023-12-13 22:32:00 121 mm[Hg] Millicent Seybo ld - External Diastolic blood pressure 2023-12-13 22:32:00 81 mm[Hg] Millicent Seybo ld - External Heart rate 2023-12-13 22:32:00 105 /min Kelse y Seybold - External Respiratory rate 2023-12-13 22:32:00 16 /min Millicent Seybold - External Body height 2023-12-13 22:32:00 172.7 cm Casandra ey Seybold - External Body weight 2023-12-13 22:32:00 111.585 kg Casandra ey Seybold - External BMI 2023-12-13 22:32:00 37.40 kg/m2 Casandra ey Seybold - External Oxygen saturation in Arterial blood by Pulse oximetry 2023-12-13 22:32:00 100 /min Millicent Seybo ld - External Systolic blood pressure 2023-11-22 19:42:00 136 mm[Hg] Millicent Seybo ld - External Diastolic blood pressure 2023-11-22 19:42:00 88 mm[Hg] Millicent Seybo ld - External Heart rate 2023-11-22 19:42:00 77 /min Kelse y Seybold - External Body temperature 2023-11-22 19:42:00 37.11 Mai Millicent Seybold - External Respiratory rate 2023-11-22 19:42:00 17 /min Millicent Seybold - External Body height 2023-11-22 19:42:00 172.7 cm Casandra ey Seybold - External Body weight 2023-11-22 19:42:00 110.224 kg Casandra ey Seybold - External BMI 2023-11-22 19:42:00 36.95 kg/m2 Casandra ey Seybold - External Systolic blood pressure 2023-11-08 20:02:00 124 mm[Hg] Millicent Seybo ld - External Diastolic blood pressure 2023-11-08 20:02:00 70 mm[Hg] Millicent Seybo ld - External Heart rate 2023-11-08 20:02:00 88 /min Kelse y Seybold - External Body temperature 2023-11-08 20:02:00 36.61 Mai Millicent Seybold - External Respiratory rate 2023-11-08 20:02:00 18 /min Millicent Seybold - External Body height 2023-11-08 20:02:00 172.7 cm Casandra ey Seybold - External Body weight 2023-11-08 20:02:00 110.224 kg Casandra ey Seybold - External BMI 2023-11-08 20:02:00 36.95 kg/m2 Casandra ey Seybold - External Systolic blood pressure 2023-09-27 17:27:00 125 mm[Hg] Millicent Seybo ld - External Diastolic blood pressure 2023-09-27 17:27:00 82 mm[Hg] Millicent Seybo ld - External Heart rate 2023-09-27 17:27:00 92 /min Kelse y Seybold - External Body height 2023-09-27 17:27:00 172.7 cm Casandra ey Seybold - External Body weight 2023-09-27 17:27:00 112.492 kg Casandra ey Seybold - External BMI 2023-09-27 17:27:00 37.71 kg/m2 Casandra ey Seybold - External Systolic blood pressure 2023-09-13 19:12:00 108 mm[Hg] Millicent Seybo ld - External Diastolic blood pressure 2023-09-13 19:12:00 76 mm[Hg] Millicent Seybo ld - External Heart rate 2023-09-13 19:12:00 70 /min Kelse y Seybold - External Body temperature 2023-09-13 19:12:00 37.11 Mai Millicent Seybold - External Respiratory rate 2023-09-13 19:12:00 17 /min Millicent Seybold - External Body height 2023-09-13 19:12:00 172.7 cm Casandra ey Seybold - External Body weight 2023-09-13 19:12:00 111.403 kg Casandra ey Seybold - External BMI 2023-09-13 19:12:00 37.34 kg/m2 Casandra ey Seybold - External Systolic blood pressure 2023-08-10 19:03:00 124 mm[Hg] Millicent Seybo ld - External Diastolic blood pressure 2023-08-10 19:03:00 77 mm[Hg] Millicent Seybo ld - External Heart rate 2023-08-10 18:37:00 91 /min Kelse y Seybold - External Body temperature 2023-08-10 18:37:00 36.61 Mai Millicent Seybold - External Respiratory rate 2023-08-10 18:37:00 14 /min Millicent Seybold - External Body height 2023-08-10 18:37:00 172.7 cm Casandra ey Seybold - External Body weight 2023-08-10 18:37:00 110.678 kg Casandra ey Seybold - External BMI 2023-08-10 18:37:00 37.10 kg/m2 Casandra ey Seybold - External Oxygen saturation in Arterial blood by Pulse oximetry 2023-08-10 18:37:00 99 /min Millicent Seybo ld - External Systolic blood pressure 2023-06-20 20:04:00 125 mm[Hg] Millicent Seybo ld - External Diastolic blood pressure 2023-06-20 20:04:00 83 mm[Hg] Millicent Seybo ld - External Heart rate 2023-06-20 20:04:00 82 /min Tati y Seybold - External Body temperature 2023-06-20 20:04:00 36.89 Mai Millicent Seybold - External Respiratory rate 2023-06-20 20:04:00 16 /min Millicent Seybold - External Body height 2023-06-20 20:04:00 172.7 cm Casandra ey Seybold - External Body weight 2023-06-20 20:04:00 109.317 kg Casandra ey Seybold - External BMI 2023-06-20 20:04:00 36.64 kg/m2 Casandra ey Seybold - External Body weight 2023-05-20 19:02:00 107.502 kg Casandra ey Seybold - External BMI 2023-05-20 19:02:00 36.04 kg/m2 Casandra ey Seybold - External Body height 2023-05-20 19:02:00 172.7 cm Casandra ey Seybold - External Body weight 2023-05-09 15:07:00 113.036 kg Casandra ey Seybold - External BMI 2023-05-09 15:07:00 37.89 kg/m2 Casandra ey Seybold - External Systolic blood pressure 2023-04-25 20:24:00 116 mm[Hg] Millicent Seybo ld - External Diastolic blood pressure 2023-04-25 20:24:00 70 mm[Hg] Millicent Seybo ld - External Heart rate 2023-04-25 20:24:00 84 /min Kelse y Seybold - External Body temperature 2023-04-25 20:24:00 37.06 Mai Millicent Seybold - External Respiratory rate 2023-04-25 20:24:00 17 /min Millicent Seybold - External Body height 2023-04-25 20:24:00 172.7 cm Casandra ey Seybold - External Body weight 2023-04-25 20:24:00 114.941 kg Casandra ey Seybold - External BMI 2023-04-25 20:24:00 38.53 kg/m2 Casandra ey Seybold - External Systolic blood pressure 2023-02-17 18:12:00 120 mm[Hg] Millicent Seybo ld - External Diastolic blood pressure 2023-02-17 18:12:00 78 mm[Hg] Millicent Seybo ld - External Heart rate 2023-02-17 18:12:00 90 /min Kelse y Seybold - External Body temperature 2023-02-17 18:12:00 36.44 Mai Millicent Seybold - External Respiratory rate 2023-02-17 18:12:00 18 /min Millicent Seybold - External Body height 2023-02-17 18:12:00 172.7 cm Casandra ey Seybold - External Body weight 2023-02-17 18:12:00 108.591 kg Casandra ey Seybold - External BMI 2023-02-17 18:12:00 36.40 kg/m2 Casandra ey Seybold - External Body weight 2023-02-08 14:26:00 107.502 kg Casandra ey Seybold - External BMI 2023-02-08 14:26:00 36.04 kg/m2 Casandra ey Seybold - External Systolic blood pressure 2022-12-17 19:52:00 121 mm[Hg] Millicent Seybo ld - External Diastolic blood pressure 2022-12-17 19:52:00 78 mm[Hg] Millicent Seybo ld - External Heart rate 2022-12-17 19:52:00 92 /min Kelse y Seybold - External Respiratory rate 2022-12-17 19:52:00 20 /min Millicent Seybold - External Body height 2022-12-17 19:52:00 172.7 cm Casandra Fernándezold - External Body weight 2022-12-17 19:52:00 107.775 kg Casandra ey Seybold - External BMI 2022-12-17 19:52:00 36.13 kg/m2 Casandra ey Seybold - External Encounters Start Date/Time End Date/Time Encounter Type Admission Type Attending [facility] Care Department Encounter ID Source 2022 11:39:01 Outpatient Linda Amanda [facility] [id number] [facility] 2022-02-12 15:43:00 Outpatient Linda Amanda [facility] [id number] [facility] 2024-07-13 11:00:00 2024-07-13 11:00:00 Outpatient MILLICENT RICKS [id number] [facility] 2024-06-01 15:00:00 2024-06-01 15:00:00 Outpatient TYRESE RICHARDSON [id number] [facility] 2024-06-01 09:30:00 2024-06-01 09:30:00 Outpatient MILLICENT RICKS [id number] [facility] 2024-05-31 00:00:00 2024-05-31 00:00:00 Outpatient TYRESE RCIHARDSON [id number] [facility] 2024-05-30 15:00:00 2024-05-30 15:00:00 Outpatient MILLICENT RICKS [id number] [facility] 2024-05-21 00:00:00 2024-05-21 00:00:00 Outpatient TYRESE RICHARDSON [id number] [facility] 2024-05-11 16:35:00 2024-05-11 16:35:00 Outpatient CRICKET RICKS [id number] [facility] 2024-05-11 15:45:00 2024-05-11 15:45:00 Outpatient GLADYS OSPINA [id number] [facility] 2024-04-18 08:30:00 2024-04-18 08:30:00 Outpatient AUDI ORTEGA [facility] [id number] [facility] 2024-04-11 15:00:00 2024-04-11 15:00:00 Outpatient BALBINA GRIFFITH MILLICENT RICKS [id number] [facility] 2024-04-05 00:00:00 2024-04-05 00:00:00 Outpatient HO, TYRESE MILLICENT RICKS [id number] [facility] 2024-03-28 10:00:00 2024-03-28 10:00:00 Outpatient HO, TYRESE MILLICENT RICKS [id number] [facility] 2024-03-20 14:30:00 2024-03-20 14:30:00 Outpatient HO, TYRESE MILLICENT RICKS [id number] [facility] 2024-03-20 08:45:00 2024-03-20 08:45:00 Outpatient HO, TYRESE MILLICENT RICKS [id number] [facility] 2024-02-28 16:15:00 2024-02-28 16:15:00 Outpatient KENNA, CLARK RICKS [id number] [facility] 2024-02-28 00:00:00 2024-02-28 00:00:00 [facility] [id number] [facility]-27 00:00:00 2024-02-27 00:00:00 Outpatient CLARK PIERSON [id number] [facility] 2024-02-24 15:10:00 2024-02-24 15:10:00 Outpatient LAB90 MILLICENT RICKS [id number] [facility] 2024-02-16 00:00:00 2024-02-16 00:00:00 Outpatient CLARK PIERSON [id number] [facility] 2024-02-14 14:10:00 2024-02-14 14:10:00 Outpatient LAB90 MILLICENT RICKS [id number] [facility] 2024-02-14 00:00:00 2024-02-14 00:00:00 Outpatient CLARK PIERSONSEY MILLICENT [id number] [facility] 2024-02-12 22:45:00 2024-02-12 22:45:00 Outpatient CLARK PIERSON MILLICENT RICKS [id number] [facility] 2024-02-08 15:30:00 2024-02-08 15:30:00 Outpatient NACHOADAMA MILLICENT RICKS [id number] [facility] 2024-02-03 00:00:00 2024-02-03 00:00:00 Outpatient TYRESE RICHARDSON [id number] [facility] 2024-02-03 00:00:00 2024-02-03 00:00:00 Outpatient MD MILLICENT CHINCHILLA [id number] [facility] 2024-02-03 00:00:00 2024-02-03 00:00:00 Outpatient MILLICENT RICKS [id number] [facility] 2024-02-02 12:15:00 2024-02-02 12:15:00 Outpatient JEY GOMEZ MILLICENT RICKS [id number] [facility] 2024-02-02 10:00:00 2024-02-02 10:00:00 Outpatient TYRESE RICHARDSON [id number] [facility]24-[facility]-30 14:00:00 2024-01-30 14:00:00 Outpatient MILLICENT RICKS [id number] [facility] 2023-12-13 16:30:00 2023-12-13 16:30:00 Outpatient BALBINA GRIFFITH [facility]ILLICENT RICKS [id number] [facility] 2023-12-12 14:15:00 2023-12-12 14:15:00 Outpatient ASHLEYSEDAELLEN OneillMAX RICKS [id number] [facility] 2023-11-22 13:45:00 2023-11-22 13:45:00 Outpatient IDRIS ABREU [id number] [facility] 2023-11-10 00:00:00 2023-11-10 00:00:00 Outpatient TYRESE RICHARDSON [id number] [facility] 2023-11-08 14:15:00 2023-11-08 14:15:00 Outpatient AKOGLNino TABBYANUJ RICKS [id number] [facility] 2023-11-08 13:30:00 2023-11-08 13:30:00 Outpatient SANDRINE GREENBERG MILLICENT RICKS [id number] [facility] 2023-10-24 14:15:00 2023-10-24 14:15:00 Outpatient MILLICENT RICKS [id number] [facility] 2023-10-17 16:00:00 2023-10-17 16:00:00 Outpatient MILLICENT RICKS [id number] [facility] 2023-09-27 11:55:00 2023-09-27 11:55:00 Outpatient LAB76 MILLICENT RICKS [id number] [facility] 2023-09-27 11:15:00 2023-09-27 11:15:00 Outpatient DYLANTYRESE MILLICENT RICKS [id number] [facility] 2023-09-23 11:30:00 2023-09-23 11:30:00 Outpatient NACHO BALBINA MILLICENT RICKS [id number] [facility] 2023-09-21 00:00:00 2023-09-21 00:00:00 Outpatient ELISE THOMPSON [id number] [facility] 2023-09-13 14:15:00 2023-09-13 14:15:00 Outpatient AKOGLU, ZACK RICKS [id number] [facility] 2023-09-12 08:00:00 2023-09-12 08:00:00 Outpatient ARRIAZAVESNALuis Fernando RICKS [id number] [facility] 2023-09-09 10:30:00 2023-09-09 10:30:00 Outpatient GURPREET MAY [id number] [facility] 2023-09-07 00:00:00 2023-09-07 00:00:00 Outpatient ZACK PRICE [id number] [facility] 2023-09-06 00:00:00 2023-09-06 00:00:00 Outpatient ZACK PRICE MILLICENT [id number] [facility] 2023-08-23 15:45:00 2023-08-23 15:45:00 Outpatient KENDRICK DAVILA MILLICENT MILLICENT [id number] [facility] 2023-08-11 14:35:00 2023-08-11 14:35:00 Outpatient LAB90 MILLICENT MILLICENT [id number] [facility] 2023-08-11 00:00:00 2023-08-11 00:00:00 Outpatient BALBINA GRIFFITH MILLICENT RICSK [id number] [facility] 2023-08-10 14:15:00 2023-08-10 14:15:00 Outpatient LAB90 MILLICENT MILLICENT [id number] [facility] 2023-08-10 13:30:00 2023-08-10 13:30:00 Outpatient BALBINA GRIFFITH MILLICENT RICKS [id number] [facility] 2023-07-26 12:15:00 2023-07-26 12:15:00 Outpatient LAB90 MILLICENT MILLICENT [id number] [facility] 2023-06-25 00:00:00 2023-06-25 00:00:00 Outpatient AKOGLU, ZACK [facility]ENT [facility]ILLICENT [id number] [facility] 2023-06-20 15:30:00 2023-06-20 15:30:00 Outpatient LAB47 MILLICENT RICKS [id number] [facility] 2023-06-20 15:00:00 2023-06-20 15:00:00 Outpatient AKOGLU, TABBYSENMAX MILLICENT RICKS [id number] [facility] 2023-06-14 16:00:00 2023-06-14 16:00:00 Outpatient AKOGLU, TABBYSENMAX MILLICENT RICKS [id number] [facility] 2023-06-09 15:05:00 2023-06-09 15:05:00 Outpatient LAB90 MILLICENT RICKS [id number] [facility] 2023-05-20 14:00:00 2023-05-20 14:00:00 Outpatient AKOGLU, ZACK RICKS MILLICENT [id number] [facility] 2023-05-20 00:00:00 2023-05-20 00:00:00 Outpatient AKOGLU, ZACK RICKS MILLICENT [id number] [facility] 2023-05-09 09:30:00 2023-05-09 09:30:00 Outpatient YARI, SANDRINE MILLICENT RICKS [id number] [facility] 2023-05-04 00:00:00 2023-05-04 00:00:00 Outpatient AKOGLU, ZACK MILLICENT RICKS [id number] [facility] 2023-04-25 15:15:00 2023-04-25 15:15:00 Outpatient AKOGLU, ZACK MILLICENT RICKS [id number] [facility] 2023-04-25 00:00:00 2023-04-25 00:00:00 Outpatient AKOGLU, ZACK [facility]ENT RICKS [id number] [facility] 2023-04-25 00:00:00 2023-04-25 00:00:00 Outpatient AKOGLU, ZACK [facility]ENT RICKS [id number] [facility] 2023-03-09 00:00:00 2023-03-09 00:00:00 Outpatient YARIGARRYSANDRINEJACKIE RICKS [id number] [facility] 2023-02-17 13:00:00 2023-02-17 13:00:00 Outpatient OKORAFOR, MIRLANDE [facility]ENT RICKS [id number] [facility] 2023-02-08 09:30:00 2023-02-08 09:30:00 Outpatient YARI, SANDRINE RICKS [id number] [facility] 2022-12-17 14:45:00 2022-12-17 14:45:00 Outpatient LAB59 MILLICENT RICKS [id number] [facility] 2022-12-17 14:00:00 2022-12-17 14:00:00 Outpatient EMELY PATEL [id number] [facility] 2022-12-03 14:45:00 2022-12-03 14:45:00 Outpatient ZACK PRICE [id number] [facility] 2022-11-26 10:30:00 2022-11-26 10:30:00 Outpatient ROQUE CANSECO [facility] [id number] [facility] 2022-11-12 14:00:00 2022-11-12 14:00:00 Outpatient ROQUE CANSECO [facility] [id number] [facility] 2022-10-08 11:30:00 2022-10-08 11:30:00 Outpatient R VIKY NIÑO CHERYAL [facility] [id number] [facility] 2019-05-16 15:15:00 2019-05-16 15:15:00 [facility] [id number] [facility] 2019-05-16 11:20:00 2019-05-16 11:20:00 [facility] [id number] [facility] 2019-01-22 10:30:00 2019-01-22 10:30:00 [facility] [id number] [facility] 2019-01-19 09:45:00 2019-01-19 09:45:[address] [facility] [id number] [facility] 2019-01-16 15:47:00 2019-01-16 15:47:[address] [facility] [facility] [id number] [facility] 2018-12-21 09:45:00 2018-12-21 09:45:[address] [facility] [facility] [facility] [id number] [facility] Notes Date/Time Note Provider Source 2024-05-11 15:51:32 Chief Complaint Patient presents with Follow-up Wants to get tested due to infection she had on her hand Lori Holm LVN T [facility] 2024-04-11 14:49:27 Chief Complaint Patient presents with Finger Injury Right ring finger red and swollen. Had an ant bite and popped it about 5 days ago Lori Holm LVN T [facility] 2024-02-28 16:36:34 Chief Complaint Patient presents with Consultation Weight Problem @Kinsey Molina CMA II Kinsey Molina CMA II [facility] 2024-02-08 15:45:09 Chief Complaint Patient presents with Laceration R hand, middle finger few days ago Belem Burnette T [facility] 2023-11-22 13:43:08 Chief Complaint Patient presents with Vaginal Problem C/o vaginal greenish discharge, with odor since 11/11/23. Flu vaccinated: No, declined vaccine today. Covid vaccinated: No, declined vaccine today. Vinita Killian MA II [facility] 2023-06-20 15:05:16 Formatting of this n ote is different from the original. Chief Complaint Patient presents with Weight Problem Weight loss No noted acute distress. Vital signs stable. [phone] (home) [phone] (work) [facility]
--- NOTE | 2024-06-23 09:48 | ER ---
Nurse's Notes [facility] Name: Pricila Hanson Age: 39 yrs Sex: Female : 1985 Arrival Date: 06/23/2024 Time: 09:32 Bed 12 Private MD: Diagnosis: Eustachian tube dysfunction;Otalgia, left ear Presentation: 06/23 09:47 Chief complaint: Patient states: left ear pain. Coronavirus screen: At this time, the aa5 client does not indicate any symptoms associated with coronavirus-19. Ebola Screen: Patient denies travel to an Ebola-affected area in the 21 days before illness onset. Initial Sepsis Screen: Does the patient meet any 2 criteria? No. Patient's initial sepsis screen is negative. Does the patient have a suspected source of infection? No. Patient's initial sepsis screen is negative. Risk Assessment: Do you want to hurt yourself or someone else? Patient reports no desire to harm self or others. Onset of symptoms was June 2024. 09:47 Acuity: CECIL 4 aa5 09:47 Method Of Arrival: Ambulatory 5 Triage Assessment: 09:57 General: Appears comfortable, Behavior is calm, cooperative. Pain: Complains of pain in aa5 left ear Quality of pain is described as aching, Pain began 2 weeks ago Is continuous. EENT: Reports pain in left ear Denies nasal congestion, nasal discharge. Neuro: Level of Consciousness is awake, alert, obeys commands, Oriented to person, place, time, situation. Cardiovascular: Patient's skin is warm and dry. Respiratory: Airway is patent Respiratory effort is even, unlabored, Respiratory pattern is regular, symmetrical, Denies cough. GI: No signs and/or symptoms were reported involving the gastrointestinal system. : No signs and/or symptoms were reported regarding the genitourinary system. Derm: Skin is dry, Skin is normal, Skin temperature is warm. Musculoskeletal: Range of motion: intact in all extremities. Historical: - Allergies: 09:47 Lizzeth; aa5 09:47 Zyrtec; aa5 - PMHx: 09:47 Anemia; aa5 - PSHx: 09:47 section; aa5 - Immunization history:: Adult Immunizations unknown. - Infectious Disease History:: Denies. - Social history:: Smoking status: Patient denies any tobacco usage or history of. Screenin:00 [facility] ED Fall Risk Assessment (Adult) History of falling in the last 3 months, aa5 including since admission No falls in past 3 months (0 pts) Confusion or Disorientation No (0 pts) Intoxicated or Sedated No (0 pts) Impaired Gait No (0 pts) Mobility Assist Device Used No (0 pt) Altered Elimination No (0 pt) Score/Fall Risk Level 0 - 2 = Low Risk Oriented to surroundings, Maintained a safe environment, Educated pt \T\ family on fall prevention, incl call for assistance when getting out of bed. Abuse screen: Denies threats or abuse. Nutritional screening: No deficits noted. Tuberculosis screening: No symptoms or risk factors identified. Assessment: 10:10 General: Appears comfortable, Behavior is calm, cooperative. Neuro: Level of aa5 Consciousness is awake, alert, obeys commands, Oriented to person, place, time, situation. Respiratory: Airway is patent Respiratory effort is even, unlabored, Respiratory pattern is regular, symmetrical. Derm: Skin is dry, Skin is normal, Skin temperature is warm. Vital Signs: 09:47 BP 148 / 71; Pulse 84; Resp 18 S; Temp 98(TE); Pulse Ox 99% on R/A; Weight 107.95 kg aa5 (R); Height 5 ft. 8 in. (R); 09:47 Body Mass Index 36.19 (107.95 kg, 172.72 cm) aa5 ED Course: 09:35 Patient arrived in ED. em1 09:37 Joselyn Peña FNP is [facility]. jh7 09:37 Leif Lee MD is Attending Physician. jh7 09:46 Arm band placed on. aa5 09:46 Patient has correct armband on for positive identification. Bed in low position. Call aa5 light in reach. Side rails up X 1. 09:47 Brenda Ly MD is Referral Physician. jh7 09:48 Triage completed. aa5 09:48 Jazzmine London, JUAREZ is Primary Nurse. aa5 10:10 No provider procedures requiring assistance completed. Patient did not have IV access aa5 during this emergency room visit. Administered Medications: 10:04 Drug: Dexamethasone IM 10 mg IM once Route: IM; Site: left gluteus; aa5 10:11 Follow up: Response: No adverse reaction aa5 Medication: 10:10 VIS not applicable for this client. aa5 Outcome: 09:48 Discharge ordered by . karlene 10:10 Discharged to home ambulatory, aa5 10:10 Condition: stable 10:10 Discharge instructions given to patient, Instructed on discharge instructions, follow up and referral plans. medication usage, Demonstrated understanding of instructions, follow-up care, medications, Prescriptions given X 1, 10:11 Patient left the ED. aa5 Signatures: Guillermo Silva em1 Jazzmine London, RN RN aa5 Joselyn Peña, ICEBOX MAN ICEBOX MAN 7
--- NOTE | 2024-06-23 09:48 | EDPHYS ---
Physician Documentation [facility] Name: Pricila Hanson Age: 39 yrs Sex: Female : 1985 Arrival Date: 06/23/2024 Time: 09:32 Bed 12 Private MD: ED Physician Leif Lee HPI: 06/23 09:40 This 39 yrs old Black Female presents to ER via Ambulatory with complaints of Ear Pain. [facility] 09:40 39-year-old female with no significant past medical history presents to the ER [facility] complaining of left ear pain for the past 1 to 2 weeks. She denies swimming, recent flights, or recent illness. Reports that she put all of oil in her left ear and is experienced no relief. Denies fever.. Historical: - Allergies: 09:47 Lizzeth; aa5 09:47 Zyrtec; aa5 - PMHx: 09:47 Anemia; aa5 - PSHx: 09:47 section; aa5 - Immunization history:: Adult Immunizations unknown. - Infectious Disease History:: Denies. - Social history:: Smoking status: Patient denies any tobacco usage or history of. ROS: 09:40 Constitutional: Per HPI 7 Exam: 09:40 Constitutional: This is a well developed, well nourished patient who is awake, alert, jh7 and in no acute distress. Head/Face: Normocephalic, atraumatic. Neck: Trachea midline, no thyromegaly or masses palpated, and no cervical lymphadenopathy. Supple, full range of motion without nuchal rigidity, or vertebral point tenderness. No Meningismus. Cardiovascular: Regular rate and rhythm with a normal S1 and S2. No gallops, murmurs, or rubs. Normal PMI, no JVD. No pulse deficits. Respiratory: Lungs have equal breath sounds bilaterally, clear to auscultation and percussion. No rales, rhonchi or wheezes noted. No increased work of breathing, no retractions or nasal flaring. Abdomen/GI: Soft, non-tender, with normal bowel sounds. No distension or tympany. No guarding or rebound. No evidence of tenderness throughout. Back: No spinal tenderness. No costovertebral tenderness. Full range of motion. Skin: Warm, dry with normal turgor. Normal color with no rashes, no lesions, and no evidence of cellulitis. MS/ Extremity: Pulses equal, no cyanosis. Neurovascular intact. Full, normal range of motion. Neuro: Awake and alert, GCS 15, oriented to person, place, time, and situation. Motor strength 5/5 in all extremities. Sensory grossly intact. Cerebellar exam normal. Normal gait. 09:40 ENT: Ear canal(s): are normal, TM's: bulging, on the left, dullness, on the left, fluid levels, on the left, Nose: is normal, Vital Signs: 09:47 BP 148 / 71; Pulse 84; Resp 18 S; Temp 98(TE); Pulse Ox 99% on R/A; Weight 107.95 kg aa5 (R); Height 5 ft. 8 in. (R); 09:47 Body Mass Index 36.19 (107.95 kg, 172.72 cm) aa5 MDM: 09:37 Patient medically screened. [facility] 09:40 Differential diagnosis: otitis media, otitis externa, ruptured TM, acute otalgia, jh7 cerumen impaction. Data reviewed: vital signs, nurses notes. I considered the following discharge prescriptions or medication management in the emergency department Medications were administered in the Emergency Department. See MAR. Counseling: I had a detailed discussion with the patient and/or guardian regarding the historical points, exam findings, and any diagnostic results supporting the discharge/admit diagnosis, the need for outpatient follow up, an ENT specialist, If symptoms persist, to return to the emergency department if symptoms worsen or persist or if there are any questions or concerns that arise at home. Special discussion: Advised to only start antibiotics if symptoms persist. Advised to take Sudafed and Flonase to help with symptom relief.. Administered Medications: 10:04 Drug: Dexamethasone IM 10 mg IM once Route: IM; Site: left gluteus; aa5 10:11 Follow up: Response: No adverse reaction aa5 Disposition: 10:21 Co-signature as Attending Physician, Leif Lee MD I reviewed the patient's care rt provided by the Advanced Practice Provider and agree with the diagnosis and treatment plan. Disposition Summary: 06/23/24 09:48 Discharge Ordered Notes: Location: Home [facility] Problem: new [facility] Symptoms: are unchanged jh7 Condition: Stable jh7 Diagnosis - Eustachian tube dysfunction jh7 - Otalgia, left ear [facility] Followup: [facility] - With: Brenda Ly MD - When: 1 week - Reason: Recheck today's complaints Discharge Instructions: - Discharge Summary Sheet [facility] - Earache, Adult [facility] - Eustachian Tube Dysfunction [facility] Forms: - Medication Reconciliation Form [facility] - Antibiotic Education [facility] - Patient Portal Instructions [facility] - Leadership Thank You Letter [facility] Prescriptions: - Amoxicillin 875 mg Oral Tablet - take 1 tablet ORAL route every 12 hours for 10 days; 20 tablet; Refills: 0, jh7 Product Selection Permitted Signatures: Jazzmine London RN RN aa5 Joselyn Peña, MOBILE TESTER MOBILE TESTER 7 Leif Lee MD MD rt
[2024-06-23] MEDS ORDERED: dexAMETHasone 10 MG/ML VIAL ONE (10:01)
[2024-06-23 11:43] VITALS: BP 148/71; TEMP 98; O2SAT 99
== END 2024-06-23 10:11 | disposition home or self-care (01) ==
LOC: ER 09:32
DX: H69.82 Other specified disorders of Eustachian tube, left ear (principal)
CPT/HCPCS: 96372; 99284; J1100